=== PATIENT | female | born 1985 | race Caucasian/White ===

== ENCOUNTER 2016-11-12 11:33 | Emergency (ER) | payer OTHER ==
[2016-11-12 11:33] VITALS: BMI 19.1
[2016-11-12 11:41] VITALS: TEMP 98.8
[2016-11-12] MEDS ORDERED: Morphine 4 MG/ML VIAL ONE ×2 (13:04→14:21)
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
[2016-11-12 13:10] LABS: RBC URINE 97 /hpf (0-3); URINE BACTERIA OCC (<OCC); URINE BILIRUBIN NEGATIVE (NEGATIVE); URINE BLOOD 3+ (NEGATIVE); URINE COLOR Red (YELLOW); URINE GLUCOSE (UA) NORMAL (Normal); URINE KETONE NEGATIVE (NEGATIVE); URINE LEUKOCYTE ESTERASE TRACE Leu/uL (Negative); URINE PROTEIN 2+ mg/dL (NEGATIVE); URINE UROBILINOGEN NORMAL mg/dL (0.2-1.0); WBC URINE 102 /hpf (0-5)
[2016-11-12] MEDS ORDERED: Sodium Chloride 0.9% 1,000 ML IV ONE (13:30)
[2016-11-12 13:33] LABS: BASO # 0.1 K/uL (0.0-0.2); BASO % 0.4 % (0.0-2.0); EOS % 0.1 % (0.0-4.0); HEMATOCRIT 44.6 % (34.0-47.0); LYMPH # 0.9 K/uL (1.0-4.3); LYMPH % 7.4 % (20.0-40.0); MEAN CELL VOLUME 93.5 fL (81.0-99.0); MEAN CORPUSCULAR HEMOGLOBIN 31.1 pg (27.0-31.0); MEAN CORPUSCULAR HGB CONC 33.3 g/dL (33.0-37.0); MEAN PLATELET VOLUME 8.6 fL (7.2-11.7); MONO # 0.9 K/uL (0.0-0.8); MONO % 6.9 % (0.0-10.0); PLATELET COUNT 291 K/uL (130-400); RED CELL DISTRIBUTION WIDTH 13.5 % (11.5-14.5); WHITE BLOOD COUNT 12.8 K/uL (4.8-10.8)
[2016-11-12 13:41] LABS: CHLORIDE 96 mmol/L (98-107); SODIUM 136 mmol/L (132-148)
[2016-11-12 13:44] LABS: BLOOD UREA NITROGEN 18 mg/dL (7-17); CARBON DIOXIDE 24 mmol/L (22-30); GFR AFRICAN-AMERICAN > 60; GLUCOSE,RANDOM 94 mg/dL (65-105)
[2016-11-12 13:45] LABS: CALCIUM 9.4 mg/dl (8.6-10.4)
[2016-11-12 13:47] LABS: POTASSIUM 3.2 mmol/L (3.6-5.2)
[2016-11-12 14:08] LABS: BASOPHIL 1 % (0-2); NEUTROPHIL 79 % (50-75); REACTIVE LYMPHOCYTES 1 % (0-0); TOTAL CELLS COUNTED 100
[2016-11-12 14:36] VITALS: BP 157/94; PULSE 84; RESP 20
[2016-11-12] MEDS ORDERED: Oxycodone/Acetaminophen 5/325 mg Tab PO STA (16:00)
[2016-11-12 16:07] VITALS: O2SAT 99
[2016-11-12] MEDS ORDERED: cefTRIAXone (Rocephin) 250 mg Inj IM STA (16:24)
[2016-11-12] MEDS ORDERED: Oxycodone/Acetaminophen 5/325 mg Tab ONE (16:24)
== END 2016-11-12 17:05 | disposition home or self-care (01) ==
LOC: C.ER 11:33
DX: N93.8 Other specified abnormal uterine and vaginal bleeding (principal); R10.2 Pelvic and perineal pain
CPT/HCPCS: 80048; 81001; 84703; 85025; 87086; 87491; 87591; 96361; 96372; 96374; 96375; 96376; 99285; J0696; J2270; J2765; J7040

== ENCOUNTER 2018-02-14 14:55 | Emergency (ER) | payer SELFPAY ==
[2018-02-14 14:56] VITALS: BMI 19.1
[2018-02-14 15:05] VITALS: BP 128/92; TEMP 98.2
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
--- NOTE | 2018-02-14 17:36 | CT ---
Date of service: 02/14/2018 PROCEDURE: CT OF THE TEMPORAL BONES WITHOUT CONTRAST HISTORY: LEFT EAR PAIN, LEFT HEAR LOSS, TINNITIS COMPARISON: None available. TECHNIQUE: High resolution axial images of the temporal bones were obtained. Coronal and sagittal reformats were generated. Radiation dose: Total exam DLP = mGy-cm. This CT exam was performed using one or more of the following dose reduction techniques: Automated exposure control, adjustment of the mA and/or kV according to patient size, and/or use of iterative reconstruction technique. FINDINGS: RIGHT TEMPORAL BONE: RIGHT MIDDLE EAR: Normal. RIGHT INNER EAR: Cochlea: Normal. Semicircular canals: Normal. RIGHT MASTOID AIR CELLS: Normal. RIGHT INTERNAL AUDITORY CANAL: Minimal cerumen right external auditory canal. RIGHT EXTERNAL AUDITORY CANAL: Normal. RIGHT VESTIBULAR AND COCHLEAR AQUEDUCT: Normal. OTHER FINDINGS: None. LEFT TEMPORAL BONE: LEFT MIDDLE EAR: Normal. LEFT INNER EAR: Cochlea: Normal. Semicircular canals: Normal. LEFT MASTOID AIR CELLS: Normal. LEFT INTERNAL AUDITORY CANAL: There appears to be some minimal cerumen within. LEFT EXTERNAL AUDITORY CANAL: Normal. LEFT VESTIBULAR AND COCHLEAR AQUEDUCTS: Normal. OTHER FINDINGS: None. IMPRESSION: Minimal cerumen both external auditory canals however otherwise unremarkable non contrast enhanced CT of the temporal bones.
[2018-02-14 18:23] VITALS: PULSE 88; RESP 17
[2018-02-14 22:33] VITALS: O2SAT 99
== END 2018-02-14 18:22 | disposition home or self-care (01) ==
LOC: C.ER 14:55
DX: H93.12 Tinnitus, left ear (principal); H91.90 Unspecified hearing loss, unspecified ear; F17.200 Nicotine dependence, unspecified, uncomplicated

== ENCOUNTER 2018-03-07 07:18 | Emergency (ER) | payer SELFPAY ==
[2018-03-07 07:18] VITALS: BMI 19.1
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
[2018-03-07] MEDS ORDERED: Sodium Chloride 0.9% 1,000 ML IV ONE (08:01)
[2018-03-07] MEDS ORDERED: Sodium Chloride 0.9% 1,000 ML ONE (08:16)
[2018-03-07] MEDS ORDERED: Silver Sulfadiazine 1% Cream (20 gm) TOP STA (08:17)
[2018-03-07 08:28] LABS: BASO # 0.1 K/uL (0.0-0.2); BASO % 1.2 % (0.0-2.0); EOS # 0.1 K/uL (0.0-0.7); EOS % 0.7 % (0.0-4.0); HEMOGLOBIN 15.2 g/dL (11.0-16.0); LYMPH # 1.3 K/uL (1.0-4.3); MEAN CELL VOLUME 92.7 fL (81.0-99.0); MEAN CORPUSCULAR HEMOGLOBIN 31.5 pg (27.0-31.0); MEAN PLATELET VOLUME 7.8 fL (7.2-11.7); MONO # 0.7 K/uL (0.0-0.8); NEUT % 81.1 % (50.0-75.0); NRBC % 0.1 % (0.0-2.0); RBC 4.84 Mil/uL (3.80-5.20); WHITE BLOOD COUNT 12.3 K/uL (4.8-10.8)
[2018-03-07] MEDS ORDERED: Silver Sulfadiazine 1% Cream (20 gm) ONE (08:33)
[2018-03-07 08:39] LABS: ALB/GLOB RATIO 1.5 (1.0-2.1); ALBUMIN 4.9 g/dL (3.5-5.0); ALT/SGPT 18 U/L (9-52); AST/SGOT 22 U/L (14-36); BLOOD UREA NITROGEN 20 mg/dL (7-17); CALCIUM 9.7 mg/dl (8.6-10.4); GFR NON-AFRICAN AMERICAN > 60; LIPASE 402 U/L (23-300)
[2018-03-07 08:41] LABS: SQUAMOUS EPITHIAL 9 /hpf (0-5); URINE BACTERIA RARE (<OCC); URINE BILIRUBIN NEGATIVE (NEGATIVE); URINE BLOOD 3+ (NEGATIVE); URINE CLARITY Hazy (Clear); URINE COLOR Amber (YELLOW); URINE GLUCOSE (UA) NORMAL (Normal); URINE LEUKOCYTE ESTERASE TRACE Leu/uL (Negative); URINE PROTEIN 2+ mg/dL (NEGATIVE)
[2018-03-07 08:43] LABS: HCG,QUALITATIVE URINE NEGATIVE (NEGATIVE)
[2018-03-07 08:55] LABS: BARBITURATES, UR NEGATIVE (NEGATIVE); PHENCYCLIDINE, UR NEGATIVE (NEGATIVE)
[2018-03-07 09:00] LABS: AMYLASE 116 U/L (30-110)
[2018-03-07 09:42] LABS: OPIATES, UR NEGATIVE (NEGATIVE)
[2018-03-07 09:51] LABS: BENZODIAZEPINES, UR POSITIVE (NEGATIVE)
[2018-03-07 10:25] VITALS: TEMP 98.6
[2018-03-07] MEDS ORDERED: Aluminum Hydroxide/Magnesium Hydroxide Susp (30 mL) PO STA (10:34)
--- NOTE | 2018-03-07 10:55 | CT ---
Date of service: 03/07/2018 PROCEDURE: CT Abdomen and Pelvis without intravenous contrast HISTORY: epigastric pain, elevated lipase COMPARISON: CT dated 11/06/2015 TECHNIQUE: Multiple contiguous axial images were performed through the abdomen and pelvis without the use of intravenous contrast. Subsequently, sagittal and coronal reformatted images were obtained. Radiation dose: Total exam DLP = 206.72 mGy-cm. This CT exam was performed using one or more of the following dose reduction techniques: Automated exposure control, adjustment of the mA and/or kV according to patient size, and/or use of iterative reconstruction technique. FINDINGS: LOWER THORAX: Unremarkable. LIVER: Unremarkable. No gross lesion or ductal dilatation. GALLBLADDER AND BILE DUCTS: Unremarkable. PANCREAS: Grossly preserved pancreas. Evaluation somewhat limited without contrast. If there is persistent concern for pancreatitis, consider correlation with contrast-enhanced CT if clinically indicated. SPLEEN: Unremarkable. ADRENALS: Unremarkable. No mass. KIDNEYS AND URETERS: 5 millimeter nonobstructive calculus in the upper pole of the right kidney. Additional 2 millimeter nonobstructive calculus in the lower pole of the right kidney. 4 millimeter nonobstructive calculi in the upper pole of the left kidney with an adjacent punctate 2 millimeter calculus in the upper pole of the left kidney. 2 millimeter punctate nonobstructive calculus in midpole of the left kidney. 4 millimeter nonobstructive calculus in the lower pole of the left kidney. VASCULATURE: Unremarkable. No aortic aneurysm. BOWEL: Unremarkable. No obstruction. No gross mural thickening. APPENDIX: No findings to suggest acute appendicitis. PERITONEUM: Unremarkable. No free fluid. No free air. LYMPH NODES: Few shotty para-aortic and mesenteric lymph nodes. BLADDER: Unremarkable. REPRODUCTIVE: Unremarkable. BONES: No acute fracture. OTHER FINDINGS: None. IMPRESSION: Nonobstructive bilateral renal calculi. Grossly preserved pancreas. Evaluation somewhat limited without contrast. If there is persistent concern for pancreatitis, consider correlation with contrast-enhanced CT if clinically indicated. Additional findings as above.
[2018-03-07] MEDS ORDERED: Sodium Chloride 0.9% 1,000 ML IV SCH (11:15)
[2018-03-07 11:32] VITALS: BP 160/95; PULSE 91
[2018-03-07 12:53] VITALS: RESP 16
[2018-03-07 12:55] VITALS: O2SAT 98
== END 2018-03-07 12:51 | disposition home or self-care (01) ==
LOC: C.ER 07:18
DX: T21.22XD Burn of second degree of abdominal wall, subsequent encounter (principal); X11.8XXD Contact with other hot tap-water, subsequent encounter; F41.9 Anxiety disorder, unspecified; R10.9 Unspecified abdominal pain
CPT/HCPCS: 74176; 80053; 80324; 80345; 80346; 80349; 80353; 80358; 80361; 81001; 82150; 83690; 83992; 84703; 85025; 96361; 96374; 96375; 99285; J2270; J7030

== ENCOUNTER 2018-04-01 18:18 | Emergency (ER) | payer SELFPAY ==
[2018-04-01 18:19] VITALS: BMI 19.1
[2018-04-01 18:29] VITALS: BP 112/75; TEMP 98.6
[2018-04-01 18:51] VITALS: PULSE 72; RESP 20; O2SAT 99
[2018-04-01] MEDS ORDERED: Albuterol 0.083% Inhal Sol (2.5 mg/3 mL) UD INH STA (19:36)
[2018-04-01] MEDS ORDERED: Albuterol-Ipratrop 3 mg / 0.5 (3 ml) UD IH STA (19:36)
[2018-04-01] MEDS ORDERED: Albuterol 0.083% Inhal Sol (2.5 mg/3 mL) UD ONE (19:43)
[2018-04-01] MEDS ORDERED: Albuterol-Ipratrop 3 mg / 0.5 (3 ml) UD ONE (19:43)
--- NOTE | 2018-04-01 21:12 | C.PDOC ---
History Of Present Illness 33 year old female, whose PMHx includes Asthma, presents to the ED for evaluation of intermittent wheezing for the past 2 weeks. Patient has been feeling like her asthma is not under control. She admits to smoking. Patient denies fever, chills, chest pain. Time Seen by Provider: 04/01/18 18:49 Chief Complaint (Nursing): Cough, Cold, Congestion History Per: Patient History/Exam Limitations: no limitations Onset/Duration Of Symptoms: Intermittent Episodes, Other (2 weeks ) Current Symptoms Are (Timing): Still Present Additional History Per: Patient Past Medical History Reviewed: Historical Data, Nursing Documentation, Vital Signs Vital Signs: Last Vital Signs Temp 98.6 F 04/01/18 18:26 Pulse 72 04/01/18 18:50 Resp 20 04/01/18 18:50 BP 112/75 04/01/18 18:26 Pulse Ox 99 04/01/18 18:50 - Medical History PMH: Anxiety, Asthma, Bipolar Disorder, Depression, Kidney Stones, Chronic Kidney Disease (SEE COMMENT) Surgical History: No Surg Hx - [facility] Procedures CYSTOSCOPY NEC (01/19/14) RETROGRADE PYELOGRAM (01/19/14) TU REMOV URETER OBSTRUCT (02/08/14) URETERAL CATHETERIZATION (02/08/14) Family History: States: Unknown Family Hx - Social History Hx Tobacco Use: Yes (heavy smoker) Hx Alcohol Use: No Hx Substance Use: No (Denied) - Immunization History Hx Tetanus Toxoid Vaccination: Yes Hx Influenza Vaccination: Yes Hx Pneumococcal Vaccination: No Review Of Systems Constitutional: Negative for: Fever, Chills Respiratory: Positive for: Wheezing Physical Exam - Physical Exam Appears: Non-toxic, No Acute Distress Skin: Normal Color, Warm, Dry Head: Atraumatic, Normacephalic Eye(s): bilateral: Normal Inspection Oral Mucosa: Moist Neck: Supple Chest: Symmetrical, No Deformity, No Tenderness Cardiovascular: Rhythm Regular, No Murmur Respiratory: No Rales, No Rhonchi, Wheezing Extremity: Normal ROM, Capillary Refill (less than 2 seconds ) Neurological/Psych: Oriented x3, Normal Speech, Normal Cognition ED Course And Treatment O2 Sat by Pulse Oximetry: 99 (on RA ) Pulse Ox Interpretation: Normal - Radiology CXR: Interpreted by Me CXR Interpretation: Yes: No Acute Disease Progress Note: CXR ordered and reviewed, results are negative. Albuterol INH and Prednisone PO given. On reassessment, patient is resting comfortably, showing no signs of respiratory distress and reports an improvement in her symptoms. Patient is stable for discharge and is advised to f/u with PMD within 1-2 days for further evaluation. Advised to return if sx worsen. Disposition - Disposition Referrals: [facility] at [facility] [Outside] Disposition: HOME/ ROUTINE Disposition Time: 21:10 Condition: GOOD Additional Instructions: Follow up with your PMD/clinic within 1-2 days. Return to ED if feel worse. Prescriptions: Fluticasone/Salmeterol 100/50 [Advair Diskus 100/50] 1 puff PO BID #60 puff Albuterol 0.083% [Albuterol Sulfate 3 Ml] 3 ml IH .Q4-6H #100 vial Albuterol 0.083% [Albuterol Sulfate 3 Ml] 3 ml IH .Q4-6H #100 vial predniSONE [predniSONE Tab] 2 tab PO DAILY #8 tab Albuterol HFA [Ventolin HFA 90 mcg/actuation (8 g)] 1 puff IH .Q4-6H #1 inhaler Instructions: Asthma in Adults Forms: [facility] (Trinidadian) Print Language: GEORGIAN - Clinical Impression Clinical Impression: Asthma exacerbation - PA / OYSTER HARVESTER / Resident Statement MD/DO has reviewed & agrees with the documentation as recorded. - Scribe Statement The provider has reviewed the documentation as recorded by the Scribe (Gabriella Rubio) All medical record entries made by the Scribe were at my direction and personally dictated by me. I have reviewed the chart and agree that the record accurately reflects my personal performance of the history, physical exam, medical decision making, and the department course for this patient. I have also personally directed, reviewed, and agree with the discharge instructions and disposition.
--- NOTE | 2018-04-02 08:45 | RAD ---
Date of service: 04/01/2018 HISTORY: cough/wheezing COMPARISON: No prior. TECHNIQUE: Chest PA and lateral FINDINGS: LUNGS: Mild venous congestion. Bibasilar breast and nipple shadows. PLEURA: No significant pleural effusion identified. No pneumothorax apparent. CARDIOVASCULAR: No aortic atherosclerotic calcification present. Normal cardiac size. OSSEOUS STRUCTURES: No significant abnormalities. VISUALIZED UPPER ABDOMEN: Normal. OTHER FINDINGS: None. IMPRESSION: Mild venous congestion. Bibasilar breast and nipple shadows.
== END 2018-04-01 21:20 | disposition home or self-care (01) ==
LOC: C.ER 18:18
DX: J45.901 Unspecified asthma with (acute) exacerbation (principal); F17.210 Nicotine dependence, cigarettes, uncomplicated

== ENCOUNTER 2018-04-11 13:54 | Emergency (ER) | payer SELFPAY ==
[2018-04-11 13:55] VITALS: BMI 19.1
[2018-04-11 14:21] VITALS: RESP 18
[2018-04-11] MEDS ORDERED: Sodium Chloride 0.9% 1,000 ML IV ONE (15:55)
--- NOTE | 2018-04-11 16:21 | C.PDOC ---
History Of Present Illness 33 years old female with PMHx of asthma presents to ED for complaints of epigastric and diffuse abdominal pain associated with nausea and vomiting that began 3 days ago. Patient states last episode of vomiting was TAP GRINDER. LNMP was 1 we ek ago. Patient states she did not take any pain medications. Admits to marijuana use (Last use 1 month ago) but denies any other drug use. Patient also admits to smoking half a pack of cigarettes a day. Denies alcohol use, fever, diarrhea, or any other complaints. Allergies: * Iodine. Time Seen by Provider: 04/11/18 15:16 Chief Complaint (Nursing): Abdominal Pain History Per: Patient History/Exam Limitations: no limitations Onset/Duration Of Symptoms: Days (3) Current Symptoms Are (Timing): Still Present Severity: Severe Pain Scale Rating Of: 10 Location Of Pain/Discomfort: Diffuse, Epigastric Radiation Of Pain To:: None Quality Of Discomfort: "Pain" Associated Symptoms: Nausea, Vomiting. denies: Fever, Chills, Diarrhea Exacerbating Factors: Movement Alleviating Factors: None Last Bowel Movement: Today Recent travel outside of the [place]: No Abnormal Vaginal Bleeding: No Past Medical History Reviewed: Historical Data, Nursing Documentation, Vital Signs Vital Signs: Last Vital Signs Temp 98.3 F 04/11/18 14:18 Pulse 106 H 04/11/18 14:18 Resp 18 04/11/18 14:18 BP 172/107 H 04/11/18 14:18 Pulse Ox 97 04/11/18 14:18 - Medical History PMH: Anxiety, Asthma, Bipolar Disorder, Depression, Kidney Stones, Chronic Kidney Disease (SEE COMMENT) - [facility] Procedures CYSTOSCOPY NEC (01/19/14) RETROGRADE PYELOGRAM (01/19/14) TU REMOV URETER OBSTRUCT (02/08/14) URETERAL CATHETERIZATION (02/08/14) Family History: States: Unknown Family Hx - Social History Hx Tobacco Use: Yes (heavy smoker) Hx Alcohol Use: No Hx Substance Use: No (Denied) - Immunization History Hx Tetanus Toxoid Vaccination: No Hx Influenza Vaccination: No Hx Pneumococcal Vaccination: No Review Of Systems Constitutional: Negative for: Fever, Chills Gastrointestinal: Positive for: Nausea, Vomiting, Abdominal Pain (Epigastric and diffusely ). Negative for: Diarrhea Skin: Negative for: Rash Neurological: Negative for: Weakness, Numbness Physical Exam - Physical Exam Appears: Non-toxic, No Acute Distress, Other (Cachectic. Emaciated. Muscle wasting to face. Writhing on bed in pain. ) Skin: Normal Color, Warm, Dry, No Rash Head: Atraumatic, Normacephalic Eye(s): bilateral: Normal Inspection, PERRL, EOMI Oral Mucosa: Moist Neck: Normal ROM, Supple Chest: Symmetrical, No Tenderness Cardiovascular: Rhythm Regular, No Murmur Respiratory: Normal Breath Sounds, No Rales, No Rhonchi, No Wheezing Gastrointestinal/Abdominal: Soft, Tenderness (Diffuse ) Extremity: Normal ROM Extremity: Bilateral: Atraumatic, Normal Color And Temperature, Normal ROM Pulses: Left Radial: Normal, Right Radial: Normal Neurological/Psych: Oriented x3, Normal Speech ED Course And Treatment - Laboratory Results Result Diagrams: 04/11/18 17:24 04/11/18 17:24 O2 Sat by Pulse Oximetry: 97 (RA) Pulse Ox Interpretation: Normal Medical Decision Making Medical Decision Making: Plan: * IV Fluids * Morphine * Pepcid * Blood work * Urinalysis Patient is a chronic marijuana user and 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 Patient feeling better, will d/c Disposition Counseled Patient/Family Regarding: Diagnosis, Need For Followup, Rx Given - Disposition Disposition: HOME/ ROUTINE Disposition Time: 18:15 Condition: IMPROVED Instructions: Nausea and Vomiting, Adult (DC) Forms: [facility] (Pashto), General Discharge Instructions - POA Present On Arrival: None - Clinical Impression Clinical Impression: Nausea & vomiting - Scribe Statement The provider has reviewed the documentation as recorded by the Saranya Hernández All medical record entries made by the Brooklynibissa were at my direction and personally dictated by me. I have reviewed the chart and agree that the record accurately reflects my personal performance of the history, physical exam, medical decision making, and the department course for this patient. I have also personally directed, reviewed, and agree with the discharge instructions and disposition.
[2018-04-11] MEDS ORDERED: Sodium Chloride 0.9% 1,000 ML ONE (17:01)
[2018-04-11 17:21] LABS: HCG,QUALITATIVE URINE NEGATIVE (NEGATIVE)
[2018-04-11 17:23] LABS: SQUAMOUS EPITHIAL 3 /hpf (0-5); URINE BACTERIA RARE (<OCC); URINE BILIRUBIN NEGATIVE (NEGATIVE); URINE BLOOD 1+ (NEGATIVE); URINE CLARITY Clear (Clear); URINE COLOR Yellow (YELLOW); URINE GLUCOSE (UA) NORMAL (Normal); URINE LEUKOCYTE ESTERASE NEG Leu/uL (Negative); URINE PROTEIN NEGATIVE (NEGATIVE); URINE UROBILINOGEN NORMAL mg/dL (0.2-1.0)
[2018-04-11 17:30] LABS: BARBITURATES, UR NEGATIVE (NEGATIVE); OPIATES, UR NEGATIVE (NEGATIVE); PHENCYCLIDINE, UR NEGATIVE (NEGATIVE)
[2018-04-11 17:32] LABS: BASO # 0.1 K/uL (0.0-0.2); BASO % 0.5 % (0.0-2.0); EOS # 0.1 K/uL (0.0-0.7); EOS % 0.4 % (0.0-4.0); HEMOGLOBIN 14.4 g/dL (11.0-16.0); LYMPH # 0.8 K/uL (1.0-4.3); LYMPH % 5.8 % (20.0-40.0); MEAN CELL VOLUME 93.6 fL (81.0-99.0); MEAN CORPUSCULAR HEMOGLOBIN 31.4 pg (27.0-31.0); MEAN CORPUSCULAR HGB CONC 33.5 g/dL (33.0-37.0); MEAN PLATELET VOLUME 7.3 fL (7.2-11.7); MONO # 0.4 K/uL (0.0-0.8); MONO % 2.8 % (0.0-10.0); NEUT % 90.5 % (50.0-75.0); PLATELET COUNT 356 K/uL (130-400); RBC 4.59 Mil/uL (3.80-5.20); RED CELL DISTRIBUTION WIDTH 13.6 % (11.5-14.5); WHITE BLOOD COUNT 14.4 K/uL (4.8-10.8)
[2018-04-11 17:33] LABS: BENZODIAZEPINES, UR POSITIVE (NEGATIVE)
[2018-04-11 17:42] LABS: ALB/GLOB RATIO 1.8 (1.0-2.1); ALBUMIN 4.7 g/dL (3.5-5.0); ALT/SGPT 16 U/L (9-52); AST/SGOT 17 U/L (14-36); BLOOD UREA NITROGEN 12 mg/dL (7-17); GFR NON-AFRICAN AMERICAN > 60
[2018-04-11 18:32] LABS: LARGE PLATELETS PRESENT; LYMPHOCYTE 6 % (20-40); MONOCYTE 1 % (0-10); NEUTROPHIL 93 % (50-75); PLATELET ESTIMATE SLIGHTLY INCREASED (NORMAL); TOTAL CELLS COUNTED 100
[2018-04-11 18:45] VITALS: BP 146/84; PULSE 86; TEMP 98.2; O2SAT 98
== END 2018-04-11 18:41 | disposition home or self-care (01) ==
LOC: C.ER 13:54
DX: R11.2 Nausea with vomiting, unspecified (principal)
CPT/HCPCS: 80053; 80320; 80324; 80345; 80346; 80349; 80353; 80358; 80361; 81001; 83992; 84703; 85025; 96361; 96374; 96375; 99284; J2270; J7030

== ENCOUNTER 2018-08-18 19:48 | Inpatient (IN) | payer MEDICAID, OTHER ==
[2018-08-18 19:48] VITALS: BMI 28.2
[2018-08-18] MEDS ORDERED: Sodium Chloride 0.9% 1,000 ML IV ONE ×2 (20:27→22:34)
--- NOTE | 2018-08-18 20:27 | C.PDOC ---
History Of Present Illness 33 year old female presents to the ED c/o abdominal pain associated with nausea, vomit and decrease PO intake for the past week. Patient denies fever, chills, diarrhea, CP, SOB, palpitations, rash, recent travel, sick contacts. Time Seen by Provider: 08/18/18 20:26 Chief Complaint (Nursing): Abdominal Pain History Per: Patient History/Exam Limitations: no limitations Onset/Duration Of Symptoms: Days (week) Current Symptoms Are (Timing): Still Present Context: Other Severity: Moderate Pain Scale Rating Of: 5 Location Of Pain/Discomfort: Epigastric Radiation Of Pain To:: Back Quality Of Discomfort: Dull, Cramping Associated Symptoms: Nausea, Vomiting, Urinary Symptoms. denies: Diarrhea Exacerbating Factors: None Alleviating Factors: None Last Bowel Movement: Today Additional History Per: Patient Abnormal Vaginal Bleeding: No Past Medical History Reviewed: Historical Data, Nursing Documentation, Vital Signs - Medical History PMH: Anxiety, Asthma, Bipolar Disorder, Depression, Kidney Stones, Chronic Kidney Disease (SEE COMMENT) Surgical History: No Surg Hx - [facility] Procedures CYSTOSCOPY NEC (01/19/14) RETROGRADE PYELOGRAM (01/19/14) TU REMOV URETER OBSTRUCT (02/08/14) URETERAL CATHETERIZATION (02/08/14) Family History: States: Unknown Family Hx - Social History Hx Tobacco Use: Yes (heavy smoker) Hx Alcohol Use: No Hx Substance Use: No (Denied) - Immunization History Hx Tetanus Toxoid Vaccination: No Hx Influenza Vaccination: No Hx Pneumococcal Vaccination: No Review Of Systems Constitutional: Negative for: Fever, Chills Cardiovascular: Negative for: Chest Pain Respiratory: Negative for: Shortness of Breath Gastrointestinal: Positive for: Nausea, Vomiting, Abdominal Pain. Negative for: Diarrhea, Constipation Genitourinary: Negative for: Dysuria Musculoskeletal: Negative for: Back Pain Skin: Negative for: Rash Neurological: Negative for: Weakness, Numbness, Headache Psych: Positive for: Anxiety Physical Exam - Physical Exam Appears: Non-toxic, Other (cachectic looking) Skin: Warm, Dry Head: Normacephalic Eye(s): bilateral: Normal Inspection Oral Mucosa: Dry Neck: Supple Chest: Symmetrical Cardiovascular: Rhythm Regular Respiratory: No Rales, No Rhonchi, No Wheezing Gastrointestinal/Abdominal: Soft, Tenderness (diffuse), No Distention, No Guarding, No Rebound Back: No CVA Tenderness Extremity: No Tenderness Extremity: Bilateral: Atraumatic, Normal Color And Temperature, Normal ROM Pulses: Left Dorsalis Pedis: Normal, Right Dorsalis Pedis: Normal Neurological/Psych: Oriented x3, Normal Speech, Normal Cognition Gait: Steady ED Course And Treatment - Laboratory Results Result Diagrams: 08/18/18 20:47 08/18/18 20:47 O2 Sat by Pulse Oximetry: 100 (ON RA) Pulse Ox Interpretation: Normal Progress Note: Plan: - Labs. - Pepcid 20 mg IVP. - Reglan 10 mg IVP. - IV fluids. - UA Disposition Discussed With : Orestes Celis Comment: accepted the pt on his service and took over the care at 10:37PM Doctor Will See Patient In The: ED Counseled Patient/Family Regarding: Studies Performed, Diagnosis - Disposition Disposition: HOSPITALIZED Disposition Time: 20:27 Condition: FAIR Forms: [facility] (Turkish) - POA Present On Arrival: None - Clinical Impression Clinical Impression: Pancreatitis, Abdominal pain, Severe dehydration, Renal insufficiency, UTI ( urinary tract infection) - Scribe Statement The provider has reviewed the documentation as recorded by the Scribe Kristofer Hagen All medical record entries made by the Scribe were at my direction and personally dictated by me. I have reviewed the chart and agree that the record accurately reflects my personal performance of the history, physical exam, medical decision making, and the department course for this patient. I have also personally directed, reviewed, and agree with the discharge instructions and disposition. Decision To Admit - Pt Status Changed To: Hospital Disposition Of: Inpatient - Admit Certification Admit to Inpatient:: After my assessment, the patient will require hospitalization for at least two midnights. This is because of the severity of symptoms shown, intensity of services needed, and/or the medical risk in this patient being treated as an outpatient. - InPatient: Physician Admission Certification:: After my assessment, the patient will require hospitalization for at least two midnights. This is because of the severity of symptoms shown, intensity of services needed, and/or the medical risk in this patient being treated as an outpatient. - . Bed Request Type: Regular Admitting Physician: Orestes Celis Patient Diagnosis: Pancreatitis, Abdominal pain, Severe dehydration, Renal insufficiency, UTI (urinary tract infection)
[2018-08-18 20:53] LABS: BASO # 0.1 K/uL (0.0-0.2); BASO % 0.6 % (0.0-2.0); EOS # 0.1 K/uL (0.0-0.7); EOS % 0.9 % (0.0-4.0); LYMPH # 1.2 K/uL (1.0-4.3); LYMPH % 9.3 % (20.0-40.0); MEAN CELL VOLUME 89.4 fL (81.0-99.0); MEAN CORPUSCULAR HEMOGLOBIN 31.5 pg (27.0-31.0); MEAN CORPUSCULAR HGB CONC 35.2 g/dL (33.0-37.0); MEAN PLATELET VOLUME 8.2 fL (7.2-11.7); MONO # 1.4 K/uL (0.0-0.8); NEUT # 10.3 K/uL (1.8-7.0); NEUT % 78.2 % (50.0-75.0); NRBC % 0.1 % (0.0-2.0); PLATELET COUNT 375 K/uL (130-400); RBC 6.04 Mil/uL (3.80-5.20); RED CELL DISTRIBUTION WIDTH 13.2 % (11.5-14.5); WHITE BLOOD COUNT 13.2 K/uL (4.8-10.8)
[2018-08-18 21:01] LABS: HCG,QUALITATIVE URINE NEGATIVE (NEGATIVE)
[2018-08-18 21:06] LABS: SQUAMOUS EPITHIAL 11 /hpf (0-5); URINE BACTERIA FEW (<OCC); URINE BILIRUBIN NEGATIVE (NEGATIVE); URINE BLOOD 2+ (NEGATIVE); URINE CLARITY Hazy (Clear); URINE COLOR Yellow (YELLOW); URINE GLUCOSE (UA) NORMAL (Normal); URINE LEUKOCYTE ESTERASE 2+ Leu/uL (Negative); URINE PROTEIN 1+ mg/dL (NEGATIVE); URINE UROBILINOGEN NORMAL mg/dL (0.2-1.0); WBC CLUMPS OCC /hpf
[2018-08-18 21:09] LABS: ALB/GLOB RATIO 1.4 (1.0-2.1); ALBUMIN 5.8 g/dL (3.5-5.0); BLOOD UREA NITROGEN 98 mg/dL (7-17); LIPASE 1476 U/L (23-300)
[2018-08-18 21:11] LABS: ALT/SGPT < 6 U/L (9-52); AST/SGOT 28 U/L (14-36)
[2018-08-18 21:20] LABS: GFR NON-AFRICAN AMERICAN 10
[2018-08-18 22:20] LABS: LYMPHOCYTE 12 % (20-40); MONOCYTE 6 % (0-10); NEUTROPHIL 82 % (50-75); PLATELET ESTIMATE NORMAL (NORMAL); TOTAL CELLS COUNTED 100
[2018-08-18 22:21] LABS: LARGE PLATELETS PRESENT; MICROCYTOSIS SLIGHT
[2018-08-18] MEDS ORDERED: Piperacillin/Tazobact 3.375 gm 100 ML IVPB STA (22:36)
[2018-08-18] MEDS ORDERED: Piperacillin/Tazobact 3.375 gm 100 ML IVPB ONE (22:44)
--- NOTE | 2018-08-19 00:16 | CP.PCM.HP ---
<Elena Mejia P - Last Filed: 08/19/18 06:50> History of Present Illness - History of Present Illness History of Present Illness: Medicine H&P CC: N/V/D/abdominal pain HPI: 33 year old female with PMHx of depression, anxiety and asthma presents with 1 week of vomiting, diarrhea and abominal pain. Patient states this happens when she becomes severely depressed and anxious, but has never lasted this long. Patient reports many episodes of vomiting per day, too many to count, non bloody non bilious. She has not been able to tolerate liquids or solids. She reports 2-3 episodes of diarrhea per day, but resolved 4 days ago. She also reports epigastric abdominal pain, it is severe and pulsating/cramping. Pain radiates to RUQ. Pain worsens with gagging/vomiting. Associated symptoms include chills, bodyaches and headache. Denies fever, dizziness, chest pain, cough, shortness of breath. PMHx: depression, anxiety and asthma PSHx: Kidney stent Meds: See MAR Allergies: Iodine, Shellfish- anaphylaxis; zofran, [place], peach, apple, kiwi- itching Family Hx: mother-HTN, asthma, depressoin SocHx: smoker- smokes 10cig per day for 20 years. Denies alcohol and illicit drugs PMD: Dr. Barboza Proxy: Arnold cyr [phone] Review of Systems: -Gen: No fever, + chills, +bodyaches, No headache, No lethargy, No weakness. -HEENT: No dizziness, No change in vision, No change in hearing, No sore throat, No dysphagia, No nasal congestion, No mucous. -Cardio: No chest pain, No palpitations, No lower extremity edema, No orthopnea. -Resp: No cough, No dyspnea, No hemoptysis, No wheezing, No pain on inspiration. -GI: + abdominal pain, + nausea/vomiting, + diarrhea, No hematochezia, No hematemesis. -: No dysuria, No urinary freq, No incontinence, No hematuria, No change in urinary stream. -MSK: No back pain, No muscle weakness, No radiating pain. -Skin: No itching, No rash, No lesions. -Neuro: No confusion, No numbness, No tingling, No focal weakness, No radicular pain, No syncope. -Psych: + anxiety, +depression, No H/I, No S/I, No hallucinations. Present on Admission - Present on Admission Any Indicators Present on Admission: No Past Patient History - Infectious Disease Hx of Infectious Diseases: None - Tetanus Immunizations Tetanus Immunization: Unknown - Past Medical History & Family History Past Medical History?: Yes - Past Social History Smoking Status: Heavy Smoker > 10 Cigarettes Daily - CARDIAC Hx Cardiac Disorders: No - PULMONARY Hx Asthma: Yes - NEUROLOGICAL Hx Neurological Disorder: No - HEENT Hx HEENT Problems: No - RENAL Hx Chronic Kidney Disease: Yes (SEE COMMENT) Hx Kidney Stones: Yes - ENDOCRINE/METABOLIC Hx Endocrine Disorders: No - HEMATOLOGICAL/ONCOLOGICAL Hx Blood Disorders: No - INTEGUMENTARY Hx Dermatological Problems: No - MUSCULOSKELETAL/RHEUMATOLOGICAL Hx Falls: No - GASTROINTESTINAL Hx Gastrointestinal Disorders: No - GENITOURINARY/GYNECOLOGICAL Hx Genitourinary Disorders: Yes (SEE COMMENT) Other/Comment: kidney stones - PSYCHIATRIC Hx Anxiety: Yes Hx Bipolar Disorder: Yes Hx Depression: Yes Hx Substance Use: No (Denied) - SURGICAL HISTORY Hx Surgeries: Yes (SEE COMMENT) Other/Comment: cysto/stent placement;Lithotripsy - ANESTHESIA Hx Anesthesia: Yes Hx Anesthesia Reactions: No Hx Malignant Hyperthermia: No Meds Allergies/Adverse Reactions: Allergies Allergy/AdvReac Type Severity Reaction Status Date / Time iodine Allergy Severe ANAPHYLAXIS Verified 08/18/18 20:22 ketorolac tromethamine Allergy Severe ANAPHYLAXIS Verified 08/18/18 20:22 [From Toradol] ondansetron HCl Allergy Severe ANAPHYLAXIS Verified 08/18/18 20:22 [From Zofran (as hydrochloride)] shellfish derived Allergy Severe ANAPHYLAXIS Verified 08/18/18 20:22 Physical Exam - Constitutional Appears: No Acute Distress - Head Exam Head Exam: ATRAUMATIC, NORMOCEPHALIC - Eye Exam Eye Exam: EOMI, Normal appearance, PERRL - ENT Exam ENT Exam: Mucous Membranes Moist - Neck Exam Neck exam: Positive for: Full Rom, Normal Inspection - Respiratory Exam Respiratory Exam: Wheezes (scattered), NORMAL BREATHING PATTERN. absent: Rales, Rhonchi, Respiratory Distress - Cardiovascular Exam Cardiovascular Exam: REGULAR RHYTHM, +S1, +S2 - GI/Abdominal Exam GI & Abdominal Exam: Guarding (LUQ), Normal Bowel Sounds, Soft, Tenderness (Epigastrium, LUQ and LLQ). absent: Distended, Firm, Rigid Additional comments: 1st degress singer over abdomen (reportedly from heating pad) - Extremities Exam Extremities exam: Positive for: full ROM, normal capillary refill, normal inspection, pedal pulses present. Negative for: calf tenderness, pedal edema, tenderness - Neurological Exam Neurological exam: Alert, CN II-XII Intact, Normal Gait, Oriented x3 - Psychiatric Exam Psychiatric exam: Anxious, Depressed Additional comments: tearful - Skin Skin Exam: Dry, Intact, Normal Color, Warm Additional comments: decreased turgor, 1st degree singer to abdomen Results - Vital Signs Recent Vital Signs: Last Vital Signs Temp 97.4 F L 08/18/18 23:55 Pulse 78 08/18/18 23:55 Resp 18 08/18/18 23:55 BP 132/82 08/18/18 23:55 Pulse Ox 99 08/18/18 23:55 - Labs Result Diagrams: 08/18/18 20:47 08/18/18 20:47 Labs: Laboratory Results - last 24 hr 08/18/18 08/18/18 08/18/18 20:47 20:47 20:47 WBC 13.2 H RBC 6.04 H Hgb 19.0 H D Hct 54.0 H MCV 89.4 D MCH 31.5 H MCHC 35.2 RDW 13.2 Plt Count 375 MPV 8.2 Neut % (Auto) 78.2 H Lymph % (Auto) 9.3 L Davison % (Auto) 11.0 H Eos % (Auto) 0.9 Baso % (Auto) 0.6 Neut # (Auto) 10.3 H Lymph # (Auto) 1.2 Davison # (Auto) 1.4 H Eos # (Auto) 0.1 Baso # (Auto) 0.1 Neutrophils % (Manual) 82 H Lymphocytes % (Manual) 12 L Monocytes % (Manual) 6 Platelet Estimate Normal Large Platelets Present Microcytosis (manual) Slight Sodium 126 L Potassium 3.8 Chloride 76 L D Carbon Dioxide 25 Anion Gap 28 H BUN 98 H Creatinine 5.1 H Est GFR ( Amer) 12 Est GFR (Non-Af Amer) 10 Random Glucose 97 Calcium 10.0 Total Bilirubin 1.3 AST 28 ALT < 6 L D Alkaline Phosphatase 78 Total Protein 10.1 H Albumin 5.8 H D Globulin 4.3 H Albumin/Globulin Ratio 1.4 Lipase 1476 H Urine Color Yellow Urine Clarity Hazy Urine pH 5.0 Ur Specific [place] 1.014 Urine Protein 1+ H Urine Glucose (UA) Normal Urine Ketones Negative Urine Blood 2+ H Urine Nitrate Negative Urine Bilirubin Negative Urine Urobilinogen Normal Ur Leukocyte Esterase 2+ H Urine WBC (Auto) 55 H Urine RBC (Auto) 9 H Urine WBC Clumps (Auto) Occ H Ur Squamous Epith Cells 11 H Ur Transition Epith Cell 2 Urine Bacteria Few H Hyaline Casts 11-20 H Urine HCG, Qual Negative Assessment & Plan - Assessment and Plan (Free Text) Plan: Dehydration N/V/D Mild Pancreatitis Lipase: 1476 CT abd: Mild pancreatitis at the distal tail. F/u official read D5w/NS @150 mls/hr Folic acid 1mg PO daily Thiamine 100mg PO daily Percocet 1tab Q4H PRN Severe pain Tylenol 650 Q6H PRN moderate pain Promethazine 12.5mg Q6 PRN Nausea Multivitamins NPO Depression/Anxiety Xanax 0.5mg PO daily Paxil 20mg PO daily Trazodone 200mg HS Asthma Venolin inh 2pffs Q6H PRN SOB/wheezing PPx Heparin 5000u SC q12 Pepcid 20mg PO daily Case discussed with Dr. Vimal Mejia, PGY1 <Orestes Celis P - Last Filed: 08/19/18 08:22> Results - Vital Signs Recent Vital Signs: Last Vital Signs Temp 98.6 F 08/19/18 07:00 Pulse 82 08/19/18 07:00 Resp 20 08/19/18 07:00 BP 133/89 08/19/18 07:00 Pulse Ox 94 L 08/19/18 07:00 - Labs Result Diagrams: 08/18/18 20:47 08/18/18 20:47 Labs: Laboratory Results - last 24 hr 08/18/18 08/18/18 08/18/18 20:47 20:47 20:47 WBC 13.2 H RBC 6.04 H Hgb 19.0 H D Hct 54.0 H MCV 89.4 D MCH 31.5 H MCHC 35.2 RDW 13.2 Plt Count 375 MPV 8.2 Neut % (Auto) 78.2 H Lymph % (Auto) 9.3 L Dav[place] % (Auto) 11.0 H Eos % (Auto) 0.9 Baso % (Auto) 0.6 Neut # (Auto) 10.3 H Lymph # (Auto) 1.2 [place] # (Auto) 1.4 H Eos # (Auto) 0.1 Baso # (Auto) 0.1 Neutrophils % (Manual) 82 H Lymphocytes % (Manual) 12 L Monocytes % (Manual) 6 Platelet Estimate Normal Large Platelets Present Microcytosis (manual) Slight Sodium 126 L Potassium 3.8 Chloride 76 L D Carbon Dioxide 25 Anion Gap 28 H BUN 98 H Creatinine 5.1 H Est GFR ( Amer) 12 Est GFR (Non-Af Amer) 10 Random Glucose 97 Calcium 10.0 Total Bilirubin 1.3 AST 28 ALT < 6 L D Alkaline Phosphatase 78 Total Protein 10.1 H Albumin 5.8 H D Globulin 4.3 H Albumin/Globulin Ratio 1.4 Lipase 1476 H Urine Color Yellow Urine Clarity Hazy Urine pH 5.0 Ur Specific [place] 1.014 Urine Protein 1+ H Urine Glucose (UA) Normal Urine Ketones Negative Urine Blood 2+ H Urine Nitrate Negative Urine Bilirubin Negative Urine Urobilinogen Normal Ur Leukocyte Esterase 2+ H Urine WBC (Auto) 55 H Urine RBC (Auto) 9 H Urine WBC Clumps (Auto) Occ H Ur Squamous Epith Cells 11 H Ur Transition Epith Cell 2 Urine Bacteria Few H Hyaline Casts 11-20 H Urine HCG, Qual Negative Attending/Attestation - Attestation I have personally seen and examined this patient.: Yes I have fully participated in the care of the patient.: Yes I have reviewed all pertinent clinical information: Yes Notes (Text): 08/19/18 08:16 Abd cramps, poor intake, severe dehydration, secondary ERIN, Elevated lipase ? primary pancreatitis vs form ERIN poor excretion H/o anxiety H/o canabinoid dependence h/o poor intake for 1wk, last bm about 1wk back, abd cramps for 3 days, once in 2-3 hrs, abd skin superficial grid patten of heating form heating pad. Plan IVF MVT, thiamine, ppi anxiety meds GI consult, possible endoscopy Gi/dvt prophylaxis possible psych eval for anxiety See orders for detail
[2018-08-19] MEDS ORDERED: Multivitamin (MVI) 10 ML, Thiamine 100 MG, Folic Acid 1 MG in Sodium Chloride 0.9% 1,00... IV ONE (01:29)
[2018-08-19] MEDS: Dextrose 5%/0.9% NS 1,000 ML IV SCH ×2 (02:13→10:34)
[2018-08-19] MEDS ORDERED: Promethazine 12.5 mg/10 ml Syrup PO PRN (03:32)
[2018-08-19] MEDS ORDERED: Albuterol HFA 90 mcg/actuation (8 g) INH PRN (03:42)
--- NOTE | 2018-08-19 07:54 | CP.PCM.PN ---
<Alana Gutierrez - Last Filed: 08/19/18 10:41> Subjective - Date & Time of Evaluation Date of Evaluation: 08/19/18 Time of Evaluation: 07:40 - Subjective Subjective: Patient evaluated at bedside after called by nursing to report pt complains of severe abdominal pain. Patient reports severe diffuse abdominal pain, greatest in the epigastrium and right lower quadrant. Patient denies vomiting since admission, however reports mild nausea. Further questioning reveals pt has been unable to eat/drink anything in last 7 days 2/2 vomiting; she reports no BM and scant foul smelling, concentrated, cloudy urine. Patient reports previous similar episodes of abdominal pain, however none as severe and prolonged requiring hospital eval. Pt reports severe anxiety following a meeting with her counselor last friday, which she reports as the inciting event. Denies headache, chest pain, difficulty breathing, lower extremity pains. Objective - Vital Signs/Intake and Output Vital Signs (last 24 hours): Temp Pulse Resp BP Pulse Ox 98.6 F 82 20 133/89 94 L 08/19/18 07:00 08/19/18 07:00 08/19/18 07:00 08/19/18 07:00 08/19/18 07:00 - Medications Medications: Current Medications Acetaminophen (Tylenol 325mg Tab) 650 mg PO Q6 PRN PRN Reason: Pain, moderate (4-7) Hydrocodone Bitart/Acetaminophen (Vicodin 5 Mg-300 Mg) 1 tab PO Q4H PRN PRN Reason: Pain, severe (8-10) Stop: 08/26/18 01:19 Albuterol (Ventolin Hfa 90 Mcg/Actuation (8 G)) 2 puff INH RQ6 PRN PRN Reason: Wheezing Alprazolam (Xanax) 0.5 mg PO DAILY [facility] Famotidine (Pepcid) 20 mg PO DAILY [facility] Folic Acid (Folic Acid) 1 mg PO DAILY [facility] Heparin Sodium (Porcine) (Heparin) 5,000 units SC Q12H [facility] Dextrose/Sodium Chloride (Dextrose 5%/0.9% Ns 1000 Ml) 1,000 mls @ 150 mls/hr IV .Q6H40M [facility] Last Admin: 08/19/18 02:13 Dose: 150 mls/hr Multivitamins (Hexavitamin) 1 tab PO DAILY [facility] Paroxetine HCl (Paxil) 20 mg PO DAILY [facility] Promethazine HCl (Phenergan Syrup) 12.5 mg PO Q6 PRN PRN Reason: Nausea/Vomiting Thiamine HCl (Vitamin B1 Tab) 100 mg PO DAILY [facility] Trazodone HCl (Desyrel) 200 mg PO HS [facility] - Labs Labs: 08/18/18 20:47 08/18/18 20:47 - Constitutional Appears: No Acute Distress, Agitated - Head Exam Head Exam: ATRAUMATIC, NORMAL INSPECTION, NORMOCEPHALIC - Eye Exam Eye Exam: EOMI, Normal appearance - ENT Exam ENT Exam: Mucous Membranes Dry, Normal Exam - Neck Exam Neck Exam: Normal Inspection - Respiratory Exam Respiratory Exam: NORMAL BREATHING PATTERN. absent: Respiratory Distress - Cardiovascular Exam Cardiovascular Exam: REGULAR RHYTHM, +S1, +S2. absent: Tachycardia - GI/Abdominal Exam GI & Abdominal Exam: Soft, Tenderness (epigastrium/RLQ), Hypoactive Bowel Sounds. absent: Distended Additional comments: reticularis diffusely accross abdomen/pelvis/lower back - Extremities Exam Extremities Exam: Normal Capillary Refill, Normal Inspection. absent: Calf Tenderness, Pedal Edema - Back Exam Back Exam: absent: CVA tenderness (L), CVA tenderness (R) - Neurological Exam Neurological Exam: Alert, Awake, Oriented x3 - Psychiatric Exam Psychiatric exam: Anxious - Skin Skin Exam: Dry, Intact, Warm Additional comments: reticularis abdomen/pelvis/low back Assessment and Plan - Assessment and Plan (Free Text) Assessment: 33 year old female w/ pmhx of nephrolithiasis, anxiety, depression, asthma admitted for evaluation of abdominal pain/nausea/vomiting and ERIN Plan: Abdominal pain/Nausea/Vomiting lipase: 1476, hx of elevated lipase w/o dx of pancreatitis NPO IVF, D5 NS@150 Pain meds prn, tylenol, Vicodin, dilaudid Antiemetics prn, reglan Colace 100mg BID Multivitamins Electrolyte repletion as needed GI, Dr. Bianchi consulted Imaging: CT A/P(08/18): No acute abnormality. 2 non-obstructing renal calculi. No evidence of acute pancreatitis, no peripancreatic fluid collection/mass ERIN BUN/Cr 98/5.1 on admission--->73/3.1 s/p volume repletion Possibly 2/2 vomule depletion D5 NS@150, s/p 2L NS in ED I/Os f/u renal US Nephro, Dr. Jimenez consulted UTI, recurrent UA: 2+protein, 2+LE, 55WBC, 11 squamous f/u repeat UA f/u urine cx Depression/Anxiety Continue home paxil 20mg po qd continue home xanax 0.5mg po qd continue home trazodone 200mg po qd f/u UDS Psych, Dr. Aguayo consulted Asthma Continue home ventolin q6h prn Ppx VTE: heparin q12, SCD GI: Pepcid 20mg po qd Discussed w/ Dr. Schwarz -Alana Gutierrez, PGY-1 <Yo Schwarz - Last Filed: 08/19/18 14:47> Objective - Vital Signs/Intake and Output Vital Signs (last 24 hours): Temp Pulse Resp BP Pulse Ox 98.6 F 82 20 133/89 94 L 08/19/18 07:00 08/19/18 07:00 08/19/18 07:00 08/19/18 07:00 08/19/18 07:00 - Medications Medications: Current Medications Acetaminophen (Tylenol 325mg Tab) 650 mg PO Q6 PRN PRN Reason: Pain, moderate (4-7) Hydrocodone Bitart/Acetaminophen (Vicodin 5 Mg-300 Mg) 1 tab PO Q4H PRN PRN Reason: Pain, severe (8-10) Stop: 08/26/18 01:19 Last Admin: 08/19/18 13:56 Dose: 1 tab Albuterol (Ventolin Hfa 90 Mcg/Actuation (8 G)) 2 puff INH RQ6 PRN PRN Reason: Wheezing Alprazolam (Xanax) 0.5 mg PO DAILY [facility] Last Admin: 08/19/18 11:26 Dose: 0.5 mg Docusate Sodium (Colace) 100 mg PO BID [facility] Last Admin: 08/19/18 10:31 Dose: 100 mg Folic Acid (Folic Acid) 1 mg PO DAILY [facility] Last Admin: 08/19/18 10:31 Dose: 1 mg Heparin Sodium (Porcine) (Heparin) 5,000 units SC Q12H [facility] Potassium Chloride 40 meq/ (Sodium Chloride) 1,020 mls @ 150 mls/hr IV .Q6H48M [facility] Last Admin: 08/19/18 13:55 Dose: 150 mls/hr Ceftriaxone Sodium (Rocephin Iv 1 Gm Duplex) 50 mls @ 200 mls/hr IVPB Q12H [facility]; Protocol Metoclopramide HCl (Reglan) 10 mg IVP Q6H PRN PRN Reason: Nausea/Vomiting Multivitamins (Hexavitamin) 1 tab PO DAILY [facility] Last Admin: 08/19/18 10:31 Dose: 1 tab Pantoprazole Sodium (Protonix Ec Tab) 20 mg PO DAILY [facility] Paroxetine HCl (Paxil) 20 mg PO DAILY [facility] Last Admin: 08/19/18 10:32 Dose: 20 mg Thiamine HCl (Vitamin B1 Tab) 100 mg PO DAILY [facility] Last Admin: 08/19/18 10:32 Dose: 100 mg Trazodone HCl (Desyrel) 200 mg PO HS [facility] - Labs Labs: 08/18/18 20:47 08/19/18 07:50 Attending/Attestation - Attestation I have personally seen and examined this patient.: Yes I have fully participated in the care of the patient.: Yes I have reviewed all pertinent clinical information, including history, physical exam and plan: Yes Notes (Text): 08/19/18 14:43 Medical attending: Patient was seen and examined by me. Agree with the above note by the resident As mentioned above in the resident note, the patient does have a lot of anxiety - and according to the patient she developed nausea and vommitting last week after a stressful meeting. After this meeting she stopped eating and drinking due to nausea. When asked when the last time she had one cup of water she said before last week. After talking to her for some length - the patient's elevated BUN and creatine and H/H all at this moment seem secondary to her not drinking sufficient amounts of liquid due to her psychiatric situation. She is on IVF, we will also check renal U/S as well as nephrology evaluation and also GI evaluation. She was later in the morning observed by me walking slowly in the hallways not in any acute distress We really need to get a psychiatry evaluation Yo Schwarz
[2018-08-19] MEDS ORDERED: HYDROmorphone 0.5 mg/0.5 ml ISec IVP PRN (08:05)
[2018-08-19 08:41] LABS: ALB/GLOB RATIO 1.6 (1.0-2.1); ALBUMIN 3.8 g/dL (3.5-5.0); ALT/SGPT < 6 U/L (9-52); AST/SGOT 18 U/L (14-36); BLOOD UREA NITROGEN 73 mg/dL (7-17); CALCIUM 7.7 mg/dl (8.6-10.4); GFR NON-AFRICAN AMERICAN 17
--- NOTE | 2018-08-19 09:25 | CT ---
Date of service: 08/18/2018 PROCEDURE: CT Abdomen and Pelvis without intravenous contrast HISTORY: pancreatitis COMPARISON: 03/07/2018 TECHNIQUE: Without contrast.. Contrast dose: 0 Radiation dose: Total exam DLP = 305.85 mGy-cm. This CT exam was performed using one or more of the following dose reduction techniques: Automated exposure control, adjustment of the mA and/or kV according to patient size, and/or use of iterative reconstruction technique. FINDINGS: LOWER THORAX: Unremarkable. LIVER: Unremarkable. No gross lesion or ductal dilatation. GALLBLADDER AND BILE DUCTS: Unremarkable. PANCREAS: Unremarkable. No gross lesion or ductal dilatation. SPLEEN: Unremarkable. ADRENALS: Unremarkable. No mass. KIDNEYS AND URETERS: Two nonobstructing right renal calculi, 4 mm upper pole and 2 mm lower pole. No hydronephrosis. No left renal calculus. No renal mass. VASCULATURE: Unremarkable. No aortic aneurysm. No aortic atherosclerotic calcification or mural plaque present. BOWEL: Sigmoid diverticulosis without evidence of diverticulitis. No bowel obstruction. No other abnormal bowel loops are identified. APPENDIX: Unremarkable. Normal appendix. PERITONEUM: Unremarkable. No free fluid. No free air. LYMPH NODES: Unremarkable. No enlarged lymph nodes. BLADDER: Unremarkable. REPRODUCTIVE: Normal uterus. Probable 1.9 cm right ovarian cyst. BONES: No acute fracture. OTHER FINDINGS: None. IMPRESSION: No acute abnormality. Two nonobstructing right renal calculi. No. Evidence of acute pancreatitis. No peripancreatic fluid collection or pancreatic mass identified. The preliminary findings for this examination were reported by [facility] at 10:26 p.m. on 08/18/2018. There is discordance of this report with the preliminary findings. There is no CT evidence of pancreatitis at this time.
--- NOTE | 2018-08-19 09:42 | CP.PCM.CON ---
<AlinemarileemichaelCarlos Eduardo - Last Filed: 08/19/18 10:29> History of Present Illness - History of Present Illness History of Present Illness: GI Fellow PGY4, consult note. Nieves Man is a 33F presenting with progressive abdominal pain, nausea and vomiting. Her symptoms started 1 week ago, the pain is severe, epigastric cramping. She has a very long history of vomiting associated with anxiety. She has multiple admissions for cannabis dependence. She currently denies cannabis use in the last month. She does admit that taking very hot showers and bath up to 10x per day helps her symptoms. She evens uses a heating pad constantly to help with her symptoms. She has not been able to keep food or liquids down. She sees a therapist regularly. In the ED, workup showed symptoms and lab values associated with severe dehydration. PMHx - Anxiety, depression, bipolar, cannabis dependence. PSHx - renal stent FMHx - Denies GI Related cancers SocHx - Admits smoking 10cigs per day. Denies alcohol use. 12pt ROS completed and negative except for above. Past Patient History - Infectious Disease Hx of Infectious Diseases: None - Tetanus Immunizations Tetanus Immunization: Unknown - Past Medical History & Family History Past Medical History?: Yes - Past Social History Smoking Status: Heavy Smoker > 10 Cigarettes Daily - CARDIAC Hx Cardiac Disorders: No - PULMONARY Hx Asthma: Yes - NEUROLOGICAL Hx Neurological Disorder: No - HEENT Hx HEENT Problems: No - RENAL Hx Chronic Kidney Disease: Yes (SEE COMMENT) Hx Kidney Stones: Yes - ENDOCRINE/METABOLIC Hx Endocrine Disorders: No - HEMATOLOGICAL/ONCOLOGICAL Hx Blood Disorders: No - INTEGUMENTARY Hx Dermatological Problems: No - MUSCULOSKELETAL/RHEUMATOLOGICAL Hx Falls: No - GASTROINTESTINAL Hx Gastrointestinal Disorders: No - GENITOURINARY/GYNECOLOGICAL Hx Genitourinary Disorders: Yes (SEE COMMENT) Other/Comment: kidney stones - PSYCHIATRIC Hx Anxiety: Yes Hx Bipolar Disorder: Yes Hx Depression: Yes Hx Substance Use: No (Denied) - SURGICAL HISTORY Hx Surgeries: Yes (SEE COMMENT) Other/Comment: cysto/stent placement;Lithotripsy - ANESTHESIA Hx Anesthesia: Yes Hx Anesthesia Reactions: No Hx Malignant Hyperthermia: No Meds Allergies/Adverse Reactions: Allergies Allergy/AdvReac Type Severity Reaction Status Date / Time iodine Allergy Severe ANAPHYLAXIS Verified 08/18/18 20:22 ketorolac tromethamine Allergy Severe ANAPHYLAXIS Verified 08/18/18 20:22 [From Toradol] ondansetron HCl Allergy Severe ANAPHYLAXIS Verified 08/18/18 20:22 [From Zofran (as hydrochloride)] shellfish derived Allergy Severe ANAPHYLAXIS Verified 08/18/18 20:22 - Medications Medications: Current Medications Acetaminophen (Tylenol 325mg Tab) 650 mg PO Q6 PRN PRN Reason: Pain, moderate (4-7) Hydrocodone Bitart/Acetaminophen (Vicodin 5 Mg-300 Mg) 1 tab PO Q4H PRN PRN Reason: Pain, severe (8-10) Stop: 08/26/18 01:19 Albuterol (Ventolin Hfa 90 Mcg/Actuation (8 G)) 2 puff INH RQ6 PRN PRN Reason: Wheezing Alprazolam (Xanax) 0.[address] [facility] Docusate Sodium (Colace) 100 mg PO BID [facility] Famotidine (Pepcid) [address] [facility] Folic Acid (Folic Acid) [address] [facility] Heparin Sodium (Porcine) (Heparin) 5,[address] [facility] Hydromorphone HCl (Dilaudid) 0.5 mg IVP Q6H PRN PRN Reason: Pain, severe (8-10) Last Admin: 08/19/18 08:17 Dose: 0.5 mg Dextrose/Sodium Chloride (Dextrose 5%/0.9% Ns 1000 Ml) 1,000 mls @ 150 mls/hr IV .Q6H40M [facility] Last Admin: 08/19/18 02:13 Dose: 150 mls/hr Potassium Chloride (Potassium Chloride 20 Meq/100 Ml) 20 meq in 100 mls @ 50 mls/hr IVPB ONCE ONE Stop: 08/19/18 11:29 Metoclopramide HCl (Reglan) 10 mg IVP Q6H PRN PRN Reason: Nausea/Vomiting Multivitamins (Hexavitamin) [address] [facility] Paroxetine HCl (Paxil) 20 mg PO DAILY [facility] Thiamine HCl (Vitamin B1 Tab) 100 mg PO DAILY [facility] Trazodone HCl (Desyrel) [address] [facility] Physical Exam - Constitutional Appears: Non-toxic, No Acute Distress, Unkempt Additional comments: colicky - Eye Exam Eye Exam: EOMI, Normal appearance - ENT Exam ENT Exam: Mucous Membranes Dry. absent: Mucous Membranes Moist - GI/Abdominal Exam GI & Abdominal Exam: Normal Bowel Sounds, Soft, Tenderness. absent: Organomegaly Additional comments: Skin is heterogenous color. - Neurological Exam Neurological exam: Alert, CN II-XII Intact, Oriented x3 - Psychiatric Exam Psychiatric exam: Depressed, Flat Affect - Skin Skin Exam: Normal Color, Warm Results - Vital Signs Recent Vital Signs: Last Vital Signs Temp 98.6 F 08/19/18 07:00 Pulse 82 08/19/18 07:00 Resp 20 08/19/18 07:00 BP 133/89 08/19/18 07:00 Pulse Ox 94 L 08/19/18 07:00 - Labs Result Diagrams: 08/18/18 20:47 08/19/18 07:50 Labs: Laboratory Results - last 24 hr 08/18/18 08/18/18 08/18/18 20:47 20:47 20:47 WBC 13.2 H RBC 6.04 H Hgb 19.0 H D Hct 54.0 H MCV 89.4 D MCH 31.5 H MCHC 35.2 RDW 13.2 Plt Count 375 MPV 8.2 Neut % (Auto) 78.2 H Lymph % (Auto) 9.3 L [place] % (Auto) 11.0 H Eos % (Auto) 0.9 Baso % (Auto) 0.6 Neut # (Auto) 10.3 H Lymph # (Auto) 1.2 [place] # (Auto) 1.4 H Eos # (Auto) 0.1 Baso # (Auto) 0.1 Neutrophils % (Manual) 82 H Lymphocytes % (Manual) 12 L Monocytes % (Manual) 6 Platelet Estimate Normal Large Platelets Present Microcytosis (manual) Slight Sodium 126 L Potassium 3.8 Chloride 76 L D Carbon Dioxide 25 Anion Gap 28 H BUN 98 H Creatinine 5.1 H Est GFR ( Amer) 12 Est GFR (Non-Af Amer) 10 Random Glucose 97 Calcium 10.0 Phosphorus Magnesium Total Bilirubin 1.3 AST 28 ALT < 6 L D Alkaline Phosphatase 78 Total Protein 10.1 H Albumin 5.8 H D Globulin 4.3 H Albumin/Globulin Ratio 1.4 Lipase 1476 H Urine Color Yellow Urine Clarity Hazy Urine pH 5.0 Ur Specific [place] 1.014 Urine Protein 1+ H Urine Glucose (UA) Normal Urine Ketones Negative Urine Blood 2+ H Urine Nitrate Negative Urine Bilirubin Negative Urine Urobilinogen Normal Ur Leukocyte Esterase 2+ H Urine WBC (Auto) 55 H Urine RBC (Auto) 9 H Urine WBC Clumps (Auto) Occ H Ur Squamous Epith Cells 11 H Ur Transition Epith Cell 2 Urine Bacteria Few H Hyaline Casts 11-20 H Urine HCG, Qual Negative 08/19/18 07:50 WBC RBC Hgb Hct MCV MCH MCHC RDW Plt Count MPV Neut % (Auto) Lymph % (Auto) [place] % (Auto) Eos % (Auto) Baso % (Auto) Neut # (Auto) Lymph # (Auto) [place] # (Auto) Eos # (Auto) Baso # (Auto) Neutrophils % (Manual) Lymphocytes % (Manual) Monocytes % (Manual) Platelet Estimate Large Platelets Microcytosis (manual) Sodium 129 L Potassium 2.8 L Chloride 96 L D Carbon Dioxide 23 Anion Gap 14 BUN 73 H Creatinine 3.1 H Est GFR ( Amer) 21 Est GFR (Non-Af Amer) 17 Random Glucose 101 Calcium 7.7 L Phosphorus 4.9 H Magnesium 2.6 H Total Bilirubin 1.2 AST 18 ALT < 6 L Alkaline Phosphatase 54 Total Protein 6.1 L Albumin 3.8 Globulin 2.3 Albumin/Globulin Ratio 1.6 Lipase Urine Color Urine Clarity Urine pH Ur Specific [place] Urine Protein Urine Glucose (UA) Urine Ketones Urine Blood Urine Nitrate Urine Bilirubin Urine Urobilinogen Ur Leukocyte Esterase Urine WBC (Auto) Urine RBC (Auto) Urine WBC Clumps (Auto) Ur Squamous Epith Cells Ur Transition Epith Cell Urine Bacteria Hyaline Casts Urine HCG, Qual Assessment & Plan - Assessment and Plan (Free Text) Assessment: #Severe dehydration #Possible pancreatitis #Intractable vomiting - possible cannabis hyperemesis #ERNI, severe #Hyponatremia #Hypokalemia #Tobacco dependence #Bipolar PLAN: -CT A/P shows mild peripancreatic fat stranding. No obvious gallstones. -Obtain U/S to r/o gallstones. -Continue aggressive IVF hydration. Monitor HCT and BUN for downtrend. -Educated to discontinue smoking, an independent risk factor for pancreatitis -Educated to avoid Cannabis to help with nausea/vomiting -Anti-emetics in hospital as needed, apparently allergic to zofran, recommend reglan as needed, monitor for EPS, tardive dyskinesia -Monitor electrolytes. -No endoscopic evaluation at this time. Case discussed with Dr. Bianchi, see attestation. - Date & Time Date: 08/19/18 Time: 09:43 <Jd Bianchi - Last Filed: 08/19/18 10:46> Meds - Medications Medications: Current Medications Acetaminophen (Tylenol 325mg Tab) 650 mg PO Q6 PRN PRN Reason: Pain, moderate (4-7) Hydrocodone Bitart/Acetaminophen (Vicodin 5 Mg-300 Mg) 1 tab PO Q4H PRN PRN Reason: Pain, severe (8-10) Stop: 08/26/18 01:19 Albuterol (Ventolin Hfa 90 Mcg/Actuation (8 G)) 2 puff INH RQ6 PRN PRN Reason: Wheezing Alprazolam (Xanax) 0.[address] [facility] Docusate Sodium (Colace) [address] [facility] Last Admin: 08/19/18 10:31 Dose: 100 mg Famotidine (Pepcid) [address] [facility] Last Admin: 08/19/18 10:32 Dose: 20 mg Folic Acid (Folic Acid) [address] [facility] Last Admin: 08/19/18 10:31 Dose: 1 mg Heparin Sodium (Porcine) (Heparin) 5,[address] [facility] Hydromorphone HCl (Dilaudid) 0.5 mg IVP Q6H PRN PRN Reason: Pain, severe (8-10) Last Admin: 08/19/18 08:17 Dose: 0.5 mg Dextrose/Sodium Chloride (Dextrose 5%/0.9% Ns 1000 Ml) 1,000 mls @ 150 mls/hr IV .Q6H40M [facility] Last Admin: 08/19/18 10:34 Dose: 150 mls/hr Potassium Chloride (Potassium Chloride 20 Meq/100 Ml) 20 meq in 100 mls @ 50 mls/hr IVPB ONCE ONE Stop: 08/19/18 11:29 Last Admin: 08/19/18 10:34 Dose: 50 mls/hr Metoclopramide HCl (Reglan) 10 mg IVP Q6H PRN PRN Reason: Nausea/Vomiting Multivitamins (Hexavitamin) [address] [facility] Last Admin: 08/19/18 10:31 Dose: 1 tab Paroxetine HCl (Paxil) [address] [facility] Last Admin: 08/19/18 10:32 Dose: 20 mg Thiamine HCl (Vitamin B1 Tab) [address] [facility] Last Admin: 08/19/18 10:32 Dose: 100 mg Trazodone HCl (Desyrel) 200 mg PO [facility] Results - Vital Signs Recent Vital Signs: Last Vital Signs Temp 98.6 F 08/19/18 07:00 Pulse 82 08/19/18 07:00 Resp 20 08/19/18 07:00 BP 133/89 08/19/18 07:00 Pulse Ox 94 L 08/19/18 07:00 - Labs Result Diagrams: 08/18/18 20:47 08/19/18 07:50 Labs: Laboratory Results - last 24 hr 08/18/18 08/18/18 08/18/18 20:47 20:47 20:47 WBC 13.2 H RBC 6.04 H Hgb 19.0 H D Hct 54.0 H MCV 89.4 D MCH 31.5 H MCHC 35.2 RDW 13.2 Plt Count 375 MPV 8.2 Neut % (Auto) 78.2 H Lymph % (Auto) 9.3 L [place] % (Auto) 11.0 H Eos % (Auto) 0.9 Baso % (Auto) 0.6 Neut # (Auto) 10.3 H Lymph # (Auto) 1.2 [place] # (Auto) 1.4 H Eos # (Auto) 0.1 Baso # (Auto) 0.1 Neutrophils % (Manual) 82 H Lymphocytes % (Manual) 12 L Monocytes % (Manual) 6 Platelet Estimate Normal Large Platelets Present Microcytosis (manual) Slight Sodium 126 L Potassium 3.8 Chloride 76 L D Carbon Dioxide 25 Anion Gap 28 H BUN 98 H Creatinine 5.1 H Est GFR ( Amer) 12 Est GFR (Non-Af Amer) 10 Random Glucose 97 Calcium 10.0 Phosphorus Magnesium Total Bilirubin 1.3 AST 28 ALT < 6 L D Alkaline Phosphatase 78 Total Protein 10.1 H Albumin 5.8 H D Globulin 4.3 H Albumin/Globulin Ratio 1.4 Lipase 1476 H Urine Color Yellow Urine Clarity Hazy Urine pH 5.0 Ur Specific [place] 1.014 Urine Protein 1+ H Urine Glucose (UA) Normal Urine Ketones Negative Urine Blood 2+ H Urine Nitrate Negative Urine Bilirubin Negative Urine Urobilinogen Normal Ur Leukocyte Esterase 2+ H Urine WBC (Auto) 55 H Urine RBC (Auto) 9 H Urine WBC Clumps (Auto) Occ H Ur Squamous Epith Cells 11 H Ur Transition Epith Cell 2 Urine Bacteria Few H Hyaline Casts 11-20 H Urine HCG, Qual Negative 08/19/18 07:50 WBC RBC Hgb Hct MCV MCH MCHC RDW Plt Count MPV Neut % (Auto) Lymph % (Auto) [place] % (Auto) Eos % (Auto) Baso % (Auto) Neut # (Auto) Lymph # (Auto) [place] # (Auto) Eos # (Auto) Baso # (Auto) Neutrophils % (Manual) Lymphocytes % (Manual) Monocytes % (Manual) Platelet Estimate Large Platelets Microcytosis (manual) Sodium 129 L Potassium 2.8 L Chloride 96 L D Carbon Dioxide 23 Anion Gap 14 BUN 73 H Creatinine 3.1 H Est GFR ( Amer) 21 Est GFR (Non-Af Amer) 17 Random Glucose 101 Calcium 7.7 L Phosphorus 4.9 H Magnesium 2.6 H Total Bilirubin 1.2 AST 18 ALT < 6 L Alkaline Phosphatase 54 Total Protein 6.1 L Albumin 3.8 Globulin 2.3 Albumin/Globulin Ratio 1.6 Lipase Urine Color Urine Clarity Urine pH Ur Specific [place] Urine Protein Urine Glucose (UA) Urine Ketones Urine Blood Urine Nitrate Urine Bilirubin Urine Urobilinogen Ur Leukocyte Esterase Urine WBC (Auto) Urine RBC (Auto) Urine WBC Clumps (Auto) Ur Squamous Epith Cells Ur Transition Epith Cell Urine Bacteria Hyaline Casts Urine HCG, Qual Attending/Attestation - Attestation I have personally seen and examined this patient.: Yes I have fully participated in the care of the patient.: Yes I have reviewed all pertinent clinical information: Yes Notes (Text): 08/19/18 10:39 Patient know to have frequent admissions for cannabis dependence presents with abdominal pain, severe dehydration with ERIN, hyperlipasemia with no radiologic evidence of acute pancreatitis, vomiting and U/A showing white cells, bacteria and trace blood. r/o UTI as source for dehydration and white count. Urine culture pending. No h/o of EtoH or IVDA. Rec/ IV fluids and renal consult Psychiatric follow up needed Repeat U/A, C and S Protonix 40mg daily Begin clear liquids as tolerated No plans for EGD at this time.
[2018-08-19] MEDS: Multiple Vitamins Tab PO SCH (10:31)
--- NOTE | 2018-08-19 10:39 | US ---
Renal/urinary bladder ultrasound Limited abdominal ultrasound Indication: hx stones/frequent UTIs Comparison: CT abdomen and pelvis without contrast performed 08/18/18 Findings: The liver appears within normal limits in echotexture and size measuring 15.2 cm. The main portal vein appears patent with normal directional flow. There is no evidence of intrahepatic ductal dilatation. The common bile duct appears within normal limits of caliber, measuring 5 mm. The gallbladder appears unremarkable. There is no evidence of gallbladder wall thickening, pericholecystic fluid, or stones. Negative sonographic Renae's sign as assessed by the electric crane operator. The pancreas was not visualized. The right kidney measures 10.6 x 6.3 x 7.5 cm and is without evidence of obstructing calculus or hydronephrosis. Echogenic renal parenchyma. 4 mm nonobstructing midpole calculus. The left kidney measures 10.6 x 6.4 x 6.1 cm and is without evidence of calculus or hydronephrosis. Echogenic renal parenchyma. Prevoid urinary bladder measures 7.0 x 8.1 x 10.1 cm, calculated volume 299.4 mL. No postvoid residual. Bilateral ureteral jets are identified. The visualized abdominal aorta appears within normal limits caliber. The visualized IVC appear grossly unremarkable. Impression: Echogenic renal parenchyma may be seen in the setting of medical renal disease. 4 mm nonobstructing right midpole calculus. No hydronephrosis. Prevoid urinary bladder measures 7.0 x 8.1 x 10.1 cm, calculated volume 299.4 mL. No postvoid residual. Bilateral ureteral jets are identified.
[2018-08-19 12:31] LABS: SQUAMOUS EPITHIAL 3 /hpf (0-5); URINE BACTERIA MOD (<OCC); URINE BILIRUBIN NEGATIVE (NEGATIVE); URINE BLOOD 1+ (NEGATIVE); URINE CLARITY Hazy (Clear); URINE COLOR Yellow (YELLOW); URINE GLUCOSE (UA) NORMAL (Normal); URINE LEUKOCYTE ESTERASE TRACE Leu/uL (Negative); URINE PROTEIN NEGATIVE (NEGATIVE); URINE UROBILINOGEN NORMAL mg/dL (0.2-1.0)
[2018-08-19 13:05] LABS: PHENCYCLIDINE, UR NEGATIVE (NEGATIVE)
[2018-08-19] MEDS ORDERED: Potassium Chloride 20 mEq/15 ml LIQ UD PO ONE (13:19)
[2018-08-19 13:37] LABS: BARBITURATES, UR NEGATIVE (NEGATIVE)
[2018-08-19 13:41] LABS: OPIATES, UR POSITIVE (NEGATIVE)
[2018-08-19] MEDS: Hydrocodone/Acetaminophen 5 mg /300 mg Tab PO PRN (13:56)
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
[2018-08-19 14:24] LABS: BENZODIAZEPINES, UR POSITIVE (NEGATIVE)
[2018-08-19 15:01] LABS: VENOUS BLOOD GAS BASE EXCESS -4.2 mmol/L (0.0-2.0); VENOUS BLOOD GAS PCO2 38 mmHg (40-60); VENOUS BLOOD GAS PO2 64 mm/Hg (30-55); VENOUS BLOOD PH 7.35 (7.32-7.43)
[2018-08-19] MEDS: cefTRIAXone IV 1 gm in Dextros 50 ML IVPB SCH (16:30)
[2018-08-19 20:05] LABS: INR 1.2; PROTHROMBIN TIME 12.8 SECONDS (9.7-12.2)
[2018-08-19 20:08] LABS: CALCIUM 7.7 mg/dl (8.6-10.4)
--- NOTE | 2018-08-20 02:22 | CON ---
DATE: 08/19/2018 [facility] NEPHROLOGY CONSULTATION HISTORY OF PRESENT ILLNESS: 33-year-old female with past medical history of depression, anxiety, and asthma, presented with one week of vomiting and abdominal pain; nephrology is being consulted for acute kidney injury. Patient reports vomiting episodes going on for approximately the past one week, has had decreased p.o. intake during this period. Started to have some p.o. intake yesterday. Reports decreased urination lately over the past few days, although has increased since being started on IV fluids. The patient, otherwise, denies taking any pain medication. Records also indicate the patient had diarrhea for several days. The patient currently does not have any vomiting since presentation. PAST MEDICAL HISTORY: As above. Also, history of nephrolithiasis with stent placed presumably in ureter several years ago. SOCIAL HISTORY: Current smoker. FAMILY HISTORY: Mother with hypertension. REVIEW OF SYSTEMS: CONSTITUTIONAL: Record indicates the patient did have chills and body aches. HEENT: Reports poor vision, corrected with glasses. CARDIOVASCULAR: Reports intermittent palpitation related to her anxiety. RESPIRATORY: Reports some sporadic coughing, otherwise no dyspnea. GASTROINTESTINAL: As per HPI. GENITOURINARY: As per HPI. No dysuria. EXTREMITIES: Denies any leg edema. MUSCULOSKELETAL: No arthralgias. SKIN: No pruritus or rashes. NEUROLOGIC: No syncope reported. PSYCHIATRIC: History of anxiety and depression. PHYSICAL EXAMINATION: VITAL SIGNS: This morning, blood pressure 133/89, heart rate 82, respirations 20, temperature 98.6, O2 sat 94% on room air. GENERAL: No distress. Conversing coherently in full sentences. HEENT: Moist mucous membranes. Nonicteric. No cervical lymphadenopathy. RESPIRATORY: Lungs clear to auscultation bilaterally with some minimal scattered wheezing. No rhonchi. No rales. CARDIOVASCULAR: Heart sounds S1 and S2, normal. No murmur. No gallops. No rubs. GASTROINTESTINAL: Abdomen soft, tenderness to moderate palpation. GENITOURINARY: No bladder distention. EXTREMITIES: No leg edema. SKIN: Warm. No cyanosis. NEUROLOGIC: No resting tremor. PSYCHIATRIC: Normal mood, normal affect. LABORATORY DATA: CBC from last night; WBC 13.2, hemoglobin 19, hematocrit 54, platelets 375. Chemistry panel this morning; sodium 129, potassium 2.8, chloride 96, bicarb 23, BUN 73, creatinine 3.1 (decreased from 98 and 5.1 last night), calcium 7.7, glucose 101, phosphorus 4.9, magnesium 2.6, albumin 3.8 (decreased from 5.8 last night). Renal ultrasound directly visualized showing increased echogenicity of kidneys bilaterally. ASSESSMENT AND PLAN: 1. Acute kidney injury, improvement with aggressive intravascular volume repletion is consistent with prerenal etiology. Currently, with stable volume status. Hemodynamically stable. We will continue to give intravenous fluids with normal saline at 150 mL per hour. See below regarding electrolytes. 2. Electrolyte imbalance. With hyponatremia, hypokalemia, metabolic alkalosis with superimposed high anion gap metabolic acidosis on presentation, all in the setting of profuse gastrointestinal losses from vomiting and acute renal failure. Hyponatremia and acid/base imbalance have improved with intravenous fluids but has had ensuing progression of hypokalemia, presumably due to renal wasting from IVF. Will need aggressive potassium replenishment, adding 40 mEq of potassium chloride per liter to above intravenous fluids. We will check BMP this evening. 3. Proteinuria, seen on multiple urinalysis samples. Unclear significance of increased echogenicity mentioned on renal ultrasound as renal function was essentially normal just about one month ago. Nevertheless, we will check for proteinuria with random urine protein/creatinine ratio and repeat UA. Thank you for this referral. We will be following up closely. Tobi Jimenez MD [facility]
[2018-08-20] MEDS: cefTRIAXone IV 1 gm in Dextros 50 ML IVPB SCH ×2 (02:37→15:34)
[2018-08-20] MEDS: Hydrocodone/Acetaminophen 5 mg /300 mg Tab PO PRN ×3 (03:35→17:54)
--- NOTE | 2018-08-20 06:40 | CP.PCM.PN ---
<Alana Gutierrez - Last Filed: 08/20/18 11:48> Subjective - Date & Time of Evaluation Date of Evaluation: 08/20/18 Time of Evaluation: 06:45 - Subjective Subjective: Patient examined at bedside. No acute overnight events. Patient reports frequent urination and several loose BMs yesterday. Reports improvement in abdominal pain, however reports 1 cramping episode that awoke her from her sleep for which she requested pain medication with improvement in symptoms. Patient reports she was able to tolerate liquid diet last night without nausea or vomiting. Patient reports increased energy since arrival. Denies chest pain, SOB, vomiting. Objective - Vital Signs/Intake and Output Vital Signs (last 24 hours): Temp Pulse Resp BP Pulse Ox 98.2 F 75 20 98/56 L 97 08/19/18 23:00 08/19/18 23:00 08/19/18 23:00 08/19/18 23:00 08/19/18 23:00 Intake and Output: 08/19/18 08/20/18 18:59 06:59 Intake Total 1240 Balance 1240 - Medications Medications: Current Medications Acetaminophen (Tylenol 325mg Tab) 650 mg PO Q6 PRN PRN Reason: Pain, moderate (4-7) Hydrocodone Bitart/Acetaminophen (Vicodin 5 Mg-300 Mg) 1 tab PO Q4H PRN PRN Reason: Pain, severe (8-10) Stop: 08/26/18 01:19 Last Admin: 08/20/18 03:35 Dose: 1 tab Albuterol (Ventolin Hfa 90 Mcg/Actuation (8 G)) 2 puff INH RQ6 PRN PRN Reason: Wheezing Alprazolam (Xanax) 0.5 mg PO DAILY [facility] Last Admin: 08/19/18 11:26 Dose: 0.5 mg Docusate Sodium (Colace) 100 mg PO BID [facility] Last Admin: 08/19/18 17:55 Dose: Not Given Folic Acid (Folic Acid) 1 mg PO DAILY [facility] Last Admin: 08/19/18 10:31 Dose: 1 mg Heparin Sodium (Porcine) (Heparin) 5,000 units SC Q12H [facility] Last Admin: 08/19/18 21:00 Dose: 5,000 units Potassium Chloride 40 meq/ (Sodium Chloride) 1,020 mls @ 150 mls/hr IV .Q6H48M [facility] Last Admin: 08/20/18 06:38 Dose: 150 mls/hr Ceftriaxone Sodium (Rocephin Iv 1 Gm Duplex) 50 mls @ 100 mls/hr IVPB Q12H [facility]; Protocol Last Admin: 08/20/18 02:37 Dose: 100 mls/hr Metoclopramide HCl (Reglan) 10 mg IVP Q6H PRN PRN Reason: Nausea/Vomiting Multivitamins (Hexavitamin) 1 tab PO DAILY [facility] Last Admin: 08/19/18 10:31 Dose: 1 tab Pantoprazole Sodium (Protonix Ec Tab) 20 mg PO DAILY [facility] Paroxetine HCl (Paxil) 20 mg PO DAILY [facility] Last Admin: 08/19/18 10:32 Dose: 20 mg Thiamine HCl (Vitamin B1 Tab) 100 mg PO DAILY [facility] Last Admin: 08/19/18 10:32 Dose: 100 mg Trazodone HCl (Desyrel) 200 mg PO HS [facility] Last Admin: 08/19/18 21:35 Dose: 200 mg - Labs Labs: 08/18/18 20:47 08/19/18 19:48 PT 12.8 SECONDS (9.7-12.2) H 08/19/18 19:48 INR 1.2 08/19/18 19:48 APTT 38 SECONDS (21-34) H 08/19/18 19:48 - Constitutional Appears: Non-toxic, No Acute Distress - Head Exam Head Exam: ATRAUMATIC, NORMAL INSPECTION, NORMOCEPHALIC - Eye Exam Eye Exam: EOMI, Normal appearance - ENT Exam ENT Exam: Mucous Membranes Moist, Normal Exam - Neck Exam Neck Exam: Normal Inspection - Respiratory Exam Respiratory Exam: Clear to Ausculation Bilateral, NORMAL BREATHING PATTERN - Cardiovascular Exam Cardiovascular Exam: REGULAR RHYTHM, +S1, +S2 - GI/Abdominal Exam GI & Abdominal Exam: Soft, Tenderness (diffusely, worst in epigastrium), Normal Bowel Sounds. absent: Distended - Extremities Exam Extremities Exam: Normal Inspection. absent: Calf Tenderness, Pedal Edema - Neurological Exam Neurological Exam: Alert, Awake, Oriented x3 - Psychiatric Exam Psychiatric exam: Normal Affect, Normal Mood - Skin Skin Exam: Dry, Intact, Warm Additional comments: reticular discoloration to abdomen/pelvis/low back Assessment and Plan - Assessment and Plan (Free Text) Assessment: 33 year old female w/ pmhx of nephrolithiasis, anxiety, depression, asthma admitted for evaluation of abdominal pain/nausea/vomiting and ERIN Plan: Abdominal pain/Nausea/Vomiting lipase: 1476, hx of elevated lipase w/o dx of pancreatitis; downtrending---->799 Tolerated liquid diet, advanced to regular diet for lunch IVF, NS@150 Pain meds prn, tylenol, Vicodin, dilaudid-d/c-ed no longer indicated. Antiemetics prn, reglan Patient now having BMs, loose stools Multivitamins Electrolyte repletion as needed GI, Dr. Bianchi consulted Imaging: CT A/P(08/18): No acute abnormality. 2 non-obstructing renal calculi. No evidence of acute pancreatitis, no peripancreatic fluid collection/mass ERNI, improving BUN/Cr 98/5.1 on admission--->73/3.1 s/p volume repletion BUN/Cr near baseline, 26/1.1 D5 NS@150, s/p 2L NS in ED I/Os Renal US negative for acute findings Nephro, Dr. Jimenez consulted UTI, recurrent UA: 2+protein, 2+LE, 55WBC, 11 squamous f/u urine cx Started on Rocephin 1g iv Q12h Depression/Anxiety Continue home paxil 20mg po qd continue home xanax 0.5mg po qd continue home trazodone 200mg po qd UDS + for opiates, cannabinoids, benzos Psych, Dr. Aguayo consulted Asthma Continue home ventolin q6h prn Ppx VTE: heparin q12, SCD GI: Pepcid 20mg po qd Discussed w/ Dr. Schwarz -Alana Gutierrez, PGY-1 <Yo Schwarz H - Last Filed: 08/20/18 14:38> Objective - Vital Signs/Intake and Output Vital Signs (last 24 hours): Temp Pulse Resp BP Pulse Ox 98 F 72 18 121/77 98 08/20/18 07:00 08/20/18 07:00 08/20/18 07:00 08/20/18 07:00 08/20/18 07:00 Intake and Output: 08/20/18 08/20/18 06:59 18:59 Intake Total 1240 950 Balance 1240 950 - Medications Medications: Current Medications Acetaminophen (Tylenol 325mg Tab) 650 mg PO Q6 PRN PRN Reason: Pain, moderate (4-7) Hydrocodone Bitart/Acetaminophen (Vicodin 5 Mg-300 Mg) 1 tab PO Q4H PRN PRN Reason: Pain, severe (8-10) Stop: 08/26/18 01:19 Last Admin: 08/20/18 07:35 Dose: 1 tab Albuterol (Ventolin Hfa 90 Mcg/Actuation (8 G)) 2 puff INH RQ6 PRN PRN Reason: Wheezing Alprazolam (Xanax) 0.5 mg PO DAILY [facility] Last Admin: 08/20/18 09:39 Dose: 0.5 mg Docusate Sodium (Colace) 100 mg PO BID [facility] Last Admin: 08/20/18 09:38 Dose: Not Given Folic Acid (Folic Acid) 1 mg PO DAILY [facility] Last Admin: 08/20/18 09:38 Dose: 1 mg Heparin Sodium (Porcine) (Heparin) 5,000 units SC Q12H [facility] Last Admin: 08/20/18 07:36 Dose: 5,000 units Ceftriaxone Sodium (Rocephin Iv 1 Gm Duplex) 50 mls @ 100 mls/hr IVPB Q12H [facility]; Protocol Last Admin: 08/20/18 02:37 Dose: 100 mls/hr Sodium Chloride (Sodium Chloride 0.9%) 1,000 mls @ 100 mls/hr IV .Q10H [facility] Last Admin: 08/20/18 12:04 Dose: 100 mls/hr Metoclopramide HCl (Reglan) 10 mg IVP Q6H PRN PRN Reason: Nausea/Vomiting Multivitamins (Hexavitamin) 1 tab PO DAILY [facility] Last Admin: 08/20/18 09:38 Dose: 1 tab Pantoprazole Sodium (Protonix Ec Tab) 20 mg PO DAILY [facility] Last Admin: 08/20/18 10:13 Dose: Not Given Paroxetine HCl (Paxil) 20 mg PO DAILY [facility] Last Admin: 08/20/18 09:39 Dose: 20 mg Thiamine HCl (Vitamin B1 Tab) 100 mg PO DAILY [facility] Last Admin: 08/20/18 09:39 Dose: 100 mg Trazodone HCl (Desyrel) 200 mg PO HS [facility] Last Admin: 08/19/18 21:35 Dose: 200 mg - Labs Labs: 08/20/18 08:07 08/20/18 08:07 PT 12.8 SECONDS (9.7-12.2) H 08/19/18 19:48 INR 1.2 08/19/18 19:48 APTT 38 SECONDS (21-34) H 08/19/18 19:48 Attending/Attestation - Attestation I have personally seen and examined this patient.: Yes I have fully participated in the care of the patient.: Yes I have reviewed all pertinent clinical information, including history, physical exam and plan: Yes Notes (Text): 08/20/18 14:36 Medical attending: Patient was seen and examined by me. Agree with the above note by the resident Earlier in the morning the patient was reportedly doing very well - however when I came and saw the patient during rounds she then told me she is no longer feeling well and that she felt anxious again. She is willing to try a regular diet to see how she does She has been observed by me and staff to be walking around in the hallway She remains on the IVF, the creatine continues to decrease. The patient reports she is now urinating more and also having more BMs finally. Yo Schwarz
[2018-08-20 08:30] LABS: ALB/GLOB RATIO 1.4 (1.0-2.1); ALBUMIN 2.9 g/dL (3.5-5.0); ALT/SGPT 12 U/L (9-52); AMYLASE 95 U/L (30-110); AST/SGOT 15 U/L (14-36); BLOOD UREA NITROGEN 26 mg/dL (7-17); CALCIUM 7.6 mg/dl (8.6-10.4); GFR NON-AFRICAN AMERICAN 57; LIPASE 799 U/L (23-300)
[2018-08-20 08:37] LABS: BASO % 0.7 % (0.0-2.0); EOS # 0.2 K/uL (0.0-0.7); EOS % 2.5 % (0.0-4.0); LYMPH # 1.5 K/uL (1.0-4.3); LYMPH % 23.6 % (20.0-40.0); MEAN CORPUSCULAR HEMOGLOBIN 31.8 pg (27.0-31.0); MEAN CORPUSCULAR HGB CONC 33.5 g/dL (33.0-37.0); MEAN PLATELET VOLUME 8.6 fL (7.2-11.7); MONO # 0.9 K/uL (0.0-0.8); MONO % 13.9 % (0.0-10.0); NEUT # 3.9 K/uL (1.8-7.0); NEUT % 59.3 % (50.0-75.0); NRBC % 0.1 % (0.0-2.0); RBC 3.93 Mil/uL (3.80-5.20); RED CELL DISTRIBUTION WIDTH 13.1 % (11.5-14.5); WHITE BLOOD COUNT 6.6 K/uL (4.8-10.8)
[2018-08-20 08:46] LABS: HEMOGLOBIN 12.5 g/dL (11.0-16.0); MEAN CELL VOLUME 94.9 fL (81.0-99.0)
--- NOTE | 2018-08-20 08:48 | CP.PCM.PN ---
<CelestemichaelCarlos Eduardo - Last Filed: 08/20/18 08:49> Subjective - Date & Time of Evaluation Date of Evaluation: 08/20/18 Time of Evaluation: 08:45 - Subjective Subjective: Patient is doing better, tolerating CLD. Abdominal pain, nausea improving. She states she had 3 loose BMs yesterday. Objective - Vital Signs/Intake and Output Vital Signs (last 24 hours): Temp Pulse Resp BP Pulse Ox 98.2 F 75 20 98/56 L 97 08/19/18 23:00 08/19/18 23:00 08/19/18 23:00 08/19/18 23:00 08/19/18 23:00 Intake and Output: 08/20/18 08/20/18 06:59 18:59 Intake Total 1240 Balance 1240 - Medications Medications: Current Medications Acetaminophen (Tylenol 325mg Tab) 650 mg PO Q6 PRN PRN Reason: Pain, moderate (4-7) Hydrocodone Bitart/Acetaminophen (Vicodin 5 Mg-300 Mg) 1 tab PO Q4H PRN PRN Reason: Pain, severe (8-10) Stop: 08/26/18 01:19 Last Admin: 08/20/18 07:35 Dose: 1 tab Albuterol (Ventolin Hfa 90 Mcg/Actuation (8 G)) 2 puff INH RQ6 PRN PRN Reason: Wheezing Alprazolam (Xanax) 0.5 mg PO DAILY [facility] Last Admin: 08/19/18 11:26 Dose: 0.5 mg Docusate Sodium (Colace) 100 mg PO BID [facility] Last Admin: 08/19/18 17:55 Dose: Not Given Folic Acid (Folic Acid) 1 mg PO DAILY [facility] Last Admin: 08/19/18 10:31 Dose: 1 mg Heparin Sodium (Porcine) (Heparin) 5,000 units SC Q12H [facility] Last Admin: 08/20/18 07:36 Dose: 5,000 units Potassium Chloride 40 meq/ (Sodium Chloride) 1,020 mls @ 150 mls/hr IV .Q6H48M [facility] Last Admin: 08/20/18 06:38 Dose: 150 mls/hr Ceftriaxone Sodium (Rocephin Iv 1 Gm Duplex) 50 mls @ 100 mls/hr IVPB Q12H [facility]; Protocol Last Admin: 08/20/18 02:37 Dose: 100 mls/hr Metoclopramide HCl (Reglan) 10 mg IVP Q6H PRN PRN Reason: Nausea/Vomiting Multivitamins (Hexavitamin) 1 tab PO DAILY [facility] Last Admin: 08/19/18 10:31 Dose: 1 tab Pantoprazole Sodium (Protonix Ec Tab) 20 mg PO DAILY [facility] Paroxetine HCl (Paxil) 20 mg PO DAILY [facility] Last Admin: 08/19/18 10:32 Dose: 20 mg Thiamine HCl (Vitamin B1 Tab) 100 mg PO DAILY [facility] Last Admin: 08/19/18 10:32 Dose: 100 mg Trazodone HCl (Desyrel) 200 mg PO HS [facility] Last Admin: 08/19/18 21:35 Dose: 200 mg - Labs Labs: 08/18/18 20:47 08/20/18 08:07 PT 12.8 SECONDS (9.7-12.2) H 08/19/18 19:48 INR 1.2 08/19/18 19:48 APTT 38 SECONDS (21-34) H 08/19/18 19:48 - Constitutional Appears: Non-toxic, No Acute Distress - Head Exam Head Exam: ATRAUMATIC, NORMAL INSPECTION - Respiratory Exam Respiratory Exam: Clear to Ausculation Bilateral, NORMAL BREATHING PATTERN - Cardiovascular Exam Cardiovascular Exam: REGULAR RHYTHM, +S1, +S2 - GI/Abdominal Exam GI & Abdominal Exam: Soft, Normal Bowel Sounds. absent: Tenderness - Extremities Exam Extremities Exam: Normal Inspection. absent: Pedal Edema - Psychiatric Exam Psychiatric exam: Normal Affect, Normal Mood - Skin Skin Exam: Normal Color, Warm Assessment and Plan - Assessment and Plan (Free Text) Assessment: #Severe dehydration #Possible pancreatitis #Intractable vomiting - possible cannabis hyperemesis vs psych related #ERIN, severe #Hyponatremia #Hypokalemia #Tobacco dependence #Bipolar PLAN: -CT A/P final read shows NO pancreatitis. -Continue aggressive IVF hydration. Monitor HCT and BUN for downtrend. -Educated to avoid Cannabis to help with nausea/vomiting -Anti-emetics in hospital as needed, apparently allergic to zofran, recommend reglan as needed, monitor for EPS, tardive dyskinesia -Monitor electrolytes. -No endoscopic evaluation at this time. -OK to start regular diet -Continue PPI, d/c at time of discharge -Follow up psych evaluation Case discussed with Dr. Bianchi, see attestation. <Jd Bianchi - Last Filed: 08/20/18 10:38> Objective - Vital Signs/Intake and Output Vital Signs (last 24 hours): Temp Pulse Resp BP Pulse Ox 98.2 F 75 20 98/56 L 97 08/19/18 23:00 08/19/18 23:00 08/19/18 23:00 08/19/18 23:00 08/19/18 23:00 Intake and Output: 08/20/18 08/20/18 06:59 18:59 Intake Total 1240 Balance 1240 - Medications Medications: Current Medications Acetaminophen (Tylenol 325mg Tab) 650 mg PO Q6 PRN PRN Reason: Pain, moderate (4-7) Hydrocodone Bitart/Acetaminophen (Vicodin 5 Mg-300 Mg) 1 tab PO Q4H PRN PRN Reason: Pain, severe (8-10) Stop: 08/26/18 01:19 Last Admin: 08/20/18 07:35 Dose: 1 tab Albuterol (Ventolin Hfa 90 Mcg/Actuation (8 G)) 2 puff INH RQ6 PRN PRN Reason: Wheezing Alprazolam (Xanax) 0.5 mg PO DAILY [facility] Last Admin: 08/20/18 09:39 Dose: 0.5 mg Docusate Sodium (Colace) 100 mg PO BID [facility] Last Admin: 08/20/18 09:38 Dose: Not Given Folic Acid (Folic Acid) 1 mg PO DAILY [facility] Last Admin: 08/20/18 09:38 Dose: 1 mg Heparin Sodium (Porcine) (Heparin) 5,000 units SC Q12H [facility] Last Admin: 08/20/18 07:36 Dose: 5,000 units Ceftriaxone Sodium (Rocephin Iv 1 Gm Duplex) 50 mls @ 100 mls/hr IVPB Q12H [facility]; Protocol Last Admin: 08/20/18 02:37 Dose: 100 mls/hr Sodium Chloride (Sodium Chloride 0.9%) 1,000 mls @ 100 mls/hr IV .Q10H [facility] Metoclopramide HCl (Reglan) 10 mg IVP Q6H PRN PRN Reason: Nausea/Vomiting Multivitamins (Hexavitamin) 1 tab PO DAILY [facility] Last Admin: 04/04/19 09:38 Dose: 1 tab Pantoprazole Sodium (Protonix Ec Tab) 20 mg PO DAILY [facility] Last Admin: 08/20/18 10:13 Dose: Not Given Paroxetine HCl (Paxil) 20 mg PO DAILY [facility] Last Admin: 08/20/18 09:39 Dose: 20 mg Thiamine HCl (Vitamin B1 Tab) 100 mg PO DAILY [facility] Last Admin: 08/20/18 09:39 Dose: 100 mg Trazodone HCl (Desyrel) 200 mg PO HS [facility] Last Admin: 08/19/18 21:35 Dose: 200 mg - Labs Labs: 08/20/18 08:07 08/20/18 08:07 PT 12.8 SECONDS (9.7-12.2) H 08/19/18 19:48 INR 1.2 08/19/18 19:48 APTT 38 SECONDS (21-34) H 08/19/18 19:48 Attending/Attestation - Attestation I have personally seen and examined this patient.: Yes I have fully participated in the care of the patient.: Yes I have reviewed all pertinent clinical information, including history, physical exam and plan: Yes Notes (Text): 08/20/18 10:36 Patient seen and examined with GI Fellow. Note reviewed. Patient feeling better. Able to tolerate diet thus far. Moved bowels well. Refusing transfer to Psych for anxiety management. Drug screen noted. Urine culture still pending as repeat U/A still showed some WBC''s and bacteriurea. (Had gotten abx in ED) No further active GI problem at present. NO further w/u needed. Recall as needed. Primary Care clinic followup as needed. Thank you.
[2018-08-20] MEDS: Multiple Vitamins Tab PO SCH (09:38)
[2018-08-20] MEDS ORDERED: Pantoprazole 20 mg EC Tab PO SCH (10:00)
[2018-08-20] MEDS ORDERED: Petrolatum Oint Foilpak (5 gm) TOP ONE (10:15)
[2018-08-20] MEDS: Sodium Chloride 0.9% 1,000 ML IV SCH ×2 (12:04→20:10)
[2018-08-20 18:18] VITALS: RESP 20
--- NOTE | 2018-08-20 22:47 | CP.PCM.PN ---
Subjective - Date & Time of Evaluation Date of Evaluation: 08/20/18 Time of Evaluation: 12:00 - Subjective Subjective: Patient reports tolerating liquid diet well; will start regular diet today; Objective - Vital Signs/Intake and Output Vital Signs (last 24 hours): Temp Pulse Resp BP Pulse Ox 98.2 F 64 20 123/80 98 08/20/18 15:00 08/20/18 15:00 08/20/18 15:00 08/20/18 15:00 08/20/18 15:00 Intake and Output: 08/20/18 08/21/18 18:59 06:59 Intake Total 950 Balance 950 - Medications Medications: Current Medications Acetaminophen (Tylenol 325mg Tab) 650 mg PO Q6 PRN PRN Reason: Pain, moderate (4-7) Hydrocodone Bitart/Acetaminophen (Vicodin 5 Mg-300 Mg) 1 tab PO Q4H PRN PRN Reason: Pain, severe (8-10) Stop: 08/26/18 01:19 Last Admin: 08/20/18 17:54 Dose: 1 tab Albuterol (Ventolin Hfa 90 Mcg/Actuation (8 G)) 2 puff INH RQ6 PRN PRN Reason: Wheezing Alprazolam (Xanax) 0.5 mg PO DAILY [facility] Last Admin: 08/20/18 09:39 Dose: 0.5 mg Docusate Sodium (Colace) 100 mg PO BID [facility] Last Admin: 08/20/18 17:37 Dose: Not Given Folic Acid (Folic Acid) 1 mg PO DAILY [facility] Last Admin: 08/20/18 09:38 Dose: 1 mg Heparin Sodium (Porcine) (Heparin) 5,000 units SC Q12H [facility] Last Admin: 08/20/18 20:07 Dose: 5,000 units Ceftriaxone Sodium (Rocephin Iv 1 Gm Duplex) 50 mls @ 100 mls/hr IVPB Q12H [facility]; Protocol Last Admin: 08/20/18 15:34 Dose: 100 mls/hr Sodium Chloride (Sodium Chloride 0.9%) 1,000 mls @ 100 mls/hr IV .Q10H [facility] Last Admin: 08/20/18 20:10 Dose: 100 mls/hr Metoclopramide HCl (Reglan) 10 mg IVP Q6H PRN PRN Reason: Nausea/Vomiting Multivitamins (Hexavitamin) 1 tab PO DAILY [facility] Last Admin: 08/20/18 09:38 Dose: 1 tab Pantoprazole Sodium (Protonix Ec Tab) 20 mg PO DAILY [facility] Last Admin: 08/20/18 10:13 Dose: Not Given Paroxetine HCl (Paxil) 20 mg PO DAILY [facility] Last Admin: 08/20/18 09:39 Dose: 20 mg Thiamine HCl (Vitamin B1 Tab) 100 mg PO DAILY [facility] Last Admin: 08/20/18 09:39 Dose: 100 mg Trazodone HCl (Desyrel) 200 mg PO HS [facility] Last Admin: 08/20/18 21:01 Dose: 200 mg - Labs Labs: 08/20/18 08:07 08/20/18 08:07 PT 12.8 SECONDS (9.7-12.2) H 08/19/18 19:48 INR 1.2 08/19/18 19:48 APTT 38 SECONDS (21-34) H 08/19/18 19:48 - Constitutional Appears: Non-toxic, No Acute Distress - Eye Exam Eye Exam: Normal appearance - Respiratory Exam Respiratory Exam: Clear to Ausculation Bilateral. absent: Respiratory Distress - Cardiovascular Exam Cardiovascular Exam: RRR, +S1, +S2 - GI/Abdominal Exam GI & Abdominal Exam: Soft. absent: Distended, Tenderness - Extremities Exam Additional comments: no leg edema - Neurological Exam Neurological Exam: Alert, Awake - Psychiatric Exam Psychiatric exam: Normal Mood. absent: Agitated - Skin Skin Exam: Warm. absent: Cyanosis Assessment and Plan (1) Acute kidney injury Assessment & Plan: Pre-renal etiology, resolving with IVF; hypokalemia and metabolic alkalosis resolved; -decreasing IVF to NS at 100 cc/hr; Status: Acute
[2018-08-21 00:34] VITALS: BP 94/55; PULSE 77; TEMP 97.6; O2SAT 99
[2018-08-21] MEDS: cefTRIAXone IV 1 gm in Dextros 50 ML IVPB SCH (02:54)
[2018-08-21] MEDS: Sodium Chloride 0.9% 1,000 ML IV SCH (06:00)
[2018-08-21] MEDS: Hydrocodone/Acetaminophen 5 mg /300 mg Tab PO PRN (06:46)
--- NOTE | 2018-08-21 07:01 | CP.PCM.PN ---
Subjective - Date & Time of Evaluation Date of Evaluation: 08/21/18 Time of Evaluation: 07:01 - Subjective Subjective: PGY-1 Medicine Progress Note for Dr. Schwarz Objective - Vital Signs/Intake and Output Vital Signs (last 24 hours): Temp Pulse Resp BP Pulse Ox 97.6 F 77 20 94/55 L 99 08/20/18 23:10 08/20/18 23:10 08/20/18 23:10 08/20/18 23:10 08/20/18 23:10 Intake and Output: 08/21/18 08/21/18 06:59 18:59 Intake Total 1440 Balance 1440 - Medications Medications: Current Medications Acetaminophen (Tylenol 325mg Tab) 650 mg PO Q6 PRN PRN Reason: Pain, moderate (4-7) Hydrocodone Bitart/Acetaminophen (Vicodin 5 Mg-300 Mg) 1 tab PO Q4H PRN PRN Reason: Pain, severe (8-10) Stop: 08/26/18 01:19 Last Admin: 08/21/18 06:46 Dose: 1 tab Albuterol (Ventolin Hfa 90 Mcg/Actuation (8 G)) 2 puff INH RQ6 PRN PRN Reason: Wheezing Alprazolam (Xanax) 0.5 mg PO DAILY [facility] Last Admin: 08/20/18 09:39 Dose: 0.5 mg Docusate Sodium (Colace) 100 mg PO BID [facility] Last Admin: 08/20/18 17:37 Dose: Not Given Folic Acid (Folic Acid) 1 mg PO DAILY [facility] Last Admin: 08/20/18 09:38 Dose: 1 mg Heparin Sodium (Porcine) (Heparin) 5,000 units SC Q12H [facility] Last Admin: 08/20/18 20:07 Dose: 5,000 units Ceftriaxone Sodium (Rocephin Iv 1 Gm Duplex) 50 mls @ 100 mls/hr IVPB Q12H [facility]; Protocol Last Admin: 08/21/18 02:54 Dose: 100 mls/hr Sodium Chloride (Sodium Chloride 0.9%) 1,000 mls @ 100 mls/hr IV .Q10H [facility] Last Admin: 08/21/18 06:00 Dose: Not Given Metoclopramide HCl (Reglan) 10 mg IVP Q6H PRN PRN Reason: Nausea/Vomiting Last Admin: 08/21/18 06:45 Dose: 10 mg Multivitamins (Hexavitamin) 1 tab PO DAILY [facility] Last Admin: 08/20/18 09:38 Dose: 1 tab Pantoprazole Sodium (Protonix Ec Tab) 20 mg PO DAILY [facility] Last Admin: 08/20/18 10:13 Dose: Not Given Paroxetine HCl (Paxil) 20 mg PO DAILY [facility] Last Admin: 08/20/18 09:39 Dose: 20 mg Thiamine HCl (Vitamin B1 Tab) 100 mg PO DAILY [facility] Last Admin: 08/20/18 09:39 Dose: 100 mg Trazodone HCl (Desyrel) 200 mg PO HS [facility] Last Admin: 08/20/18 21:01 Dose: 200 mg - Labs Labs: 08/20/18 08:07 08/20/18 08:07 PT 12.8 SECONDS (9.7-12.2) H 08/19/18 19:48 INR 1.2 08/19/18 19:48 APTT 38 SECONDS (21-34) H 08/19/18 19:48
[2018-08-21 07:25] LABS: BASO % 0.8 % (0.0-2.0); EOS # 0.2 K/uL (0.0-0.7); EOS % 3.7 % (0.0-4.0); HEMOGLOBIN 11.7 g/dL (11.0-16.0); LYMPH # 1.5 K/uL (1.0-4.3); LYMPH % 25.1 % (20.0-40.0); MEAN CELL VOLUME 94.4 fL (81.0-99.0); MEAN CORPUSCULAR HEMOGLOBIN 31.7 pg (27.0-31.0); MEAN CORPUSCULAR HGB CONC 33.6 g/dL (33.0-37.0); MEAN PLATELET VOLUME 8.7 fL (7.2-11.7); MONO # 0.7 K/uL (0.0-0.8); MONO % 12.1 % (0.0-10.0); NEUT # 3.5 K/uL (1.8-7.0); NEUT % 58.3 % (50.0-75.0); RBC 3.69 Mil/uL (3.80-5.20); RED CELL DISTRIBUTION WIDTH 13.4 % (11.5-14.5)
[2018-08-21 07:48] LABS: ALB/GLOB RATIO 1.3 (1.0-2.1); ALBUMIN 2.8 g/dL (3.5-5.0); ALT/SGPT 24 U/L (9-52); AST/SGOT 19 U/L (14-36); BLOOD UREA NITROGEN 9 mg/dL (7-17); CALCIUM 8.1 mg/dl (8.6-10.4); GFR NON-AFRICAN AMERICAN > 60
--- NOTE | 2018-08-21 11:02 | CP.PCM.DIS ---
<Fito Henderson - Last Filed: 08/21/18 10:54> Provider - Provider Date of Admission: 08/18/18 22:36 Attending physician: Orestes Celis MD Consults: 08/19/18 07:57 Gastroenterology Consult Routine Comment: Consulting Provider: Jd Bianchi Consulting Physician: Jd Bianchi Reason for Consult: gastritis/pancreatitis, dehydration 08/19/18 08:28 Nephrology Consult Routine Comment: Consulting Provider: Tobi Jimenez Consulting Physician: Tobi Jimenez Reason for Consult: ERIN/azotemia 08/19/18 09:22 Psychiatry Consult Routine Comment: Consulting Provider: Safia Aguayo Consulting Physician: Safia Aguayo Reason for Consult: severe anxiety Time Spent in preparation of Discharge (in minutes): 40 Diagnosis - Discharge Diagnosis (1) Abdominal pain Status: Acute (2) Acute kidney injury Status: Acute (3) Anxiety Status: Acute Hospital Course - Lab Results Lab Results: Micro Results 08/19/18 12:08 Urine,Clean Catch Urine Culture - Final No Growth (<1,000 CFU/ML) Most Recent Lab Values WBC 6.0 K/uL (4.8-10.8) 08/21/18 07:04 RBC 3.69 Mil/uL (3.80-5.20) L 08/21/18 07:04 Hgb 11.7 g/dL (11.0-16.0) 08/21/18 07:04 Hct 34.8 % (34.0-47.0) 08/21/18 07:04 MCV 94.4 fL (81.0-99.0) 08/21/18 07:04 MCH 31.7 pg (27.0-31.0) H 08/21/18 07:04 MCHC 33.6 g/dL (33.0-37.0) 08/21/18 07:04 RDW 13.4 % (11.5-14.5) 08/21/18 07:04 Plt Count 242 K/uL (130-400) 08/21/18 07:04 MPV 8.7 fL (7.2-11.7) 08/21/18 07:04 Neut % (Auto) 58.3 % (50.0-75.0) 08/21/18 07:04 Lymph % (Auto) 25.1 % (20.0-40.0) 08/21/18 07:04 [place] % (Auto) 12.1 % (0.0-10.0) H 08/21/18 07:04 Eos % (Auto) 3.7 % (0.0-4.0) 08/21/18 07:04 Baso % (Auto) 0.8 % (0.0-2.0) 08/21/18 07:04 Neut # (Auto) 3.5 K/uL (1.8-7.0) 08/21/18 07:04 Lymph # (Auto) 1.5 K/uL (1.0-4.3) 08/21/18 07:04 [place] # (Auto) 0.7 K/uL (0.0-0.8) 08/21/18 07:04 Eos # (Auto) 0.2 K/uL (0.0-0.7) 08/21/18 07:04 Baso # (Auto) 0.0 K/uL (0.0-0.2) 08/21/18 07:04 Neutrophils % (Manual) 82 % (50-75) H 08/18/18 20:47 Lymphocytes % (Manual) 12 % (20-40) L 08/18/18 20:47 Monocytes % (Manual) 6 % (0-10) 08/18/18 20:47 Platelet Estimate Normal (NORMAL) 08/18/18 20:47 Large Platelets Present 08/18/18 20:47 Microcytosis (manual) Slight 08/18/18 20:47 PT 12.8 SECONDS (9.7-12.2) H 08/19/18 19:48 INR 1.2 08/19/18 19:48 APTT 38 SECONDS (21-34) H 08/19/18 19:48 pO2 64 mm/Hg (30-55) H 08/19/18 14:58 VBG pH 7.35 (7.32-7.43) 08/19/18 14:58 VBG pCO2 38 mmHg (40-60) L 08/19/18 14:58 VBG HCO3 21.5 mmol/L 08/19/18 14:58 VBG Total CO2 22.2 mmol/L (22-28) 08/19/18 14:58 VBG O2 Sat (Calc) 96.1 % (40-65) H 08/19/18 14:58 VBG Base Excess -4.2 mmol/L (0.0-2.0) L 08/19/18 14:58 VBG Potassium 3.7 mmol/L (3.6-5.2) 08/19/18 14:58 Sodium 132.0 mmol/l (132-148) 08/19/18 14:58 Chloride 103.0 mmol/L (98-107) 08/19/18 14:58 Glucose 85 mg/dl (65-105) 08/19/18 14:58 Lactate 2.4 mmol/L (0.7-2.1) H 08/19/18 14:58 Sodium 138 mmol/L (132-148) 08/21/18 07:04 Potassium 4.4 mmol/L (3.6-5.2) 08/21/18 07:04 Chloride 110 mmol/L (98-107) H 08/21/18 07:04 Carbon Dioxide 24 mmol/L (22-30) 08/21/18 07:04 Anion Gap 8 (10-20) L 08/21/18 07:04 BUN 9 mg/dL (7-17) 08/21/18 07:04 Creatinine 0.8 mg/dL (0.7-1.2) 08/21/18 07:04 Est GFR ( Amer) > 60 08/21/18 07:04 Est GFR (Non-Af Amer) > 60 08/21/18 07:04 Random Glucose 88 mg/dL (65-105) 08/21/18 07:04 Calcium 8.1 mg/dl (8.6-10.4) L 08/21/18 07:04 Phosphorus 4.9 mg/dL (2.5-4.5) H 08/19/18 07:50 Magnesium 2.6 mg/dL (1.6-2.3) H 08/19/18 07:50 Total Bilirubin 0.2 mg/dL (0.2-1.3) 08/21/18 07:04 AST 19 U/L (14-36) 08/21/18 07:04 ALT 24 U/L (9-52) 08/21/18 07:04 Alkaline Phosphatase 46 U/L (38-126) 08/21/18 07:04 Total Protein 4.9 g/dL (6.3-8.3) L 08/21/18 07:04 Albumin 2.8 g/dL (3.5-5.0) L 08/21/18 07:04 Globulin 2.1 gm/dL (2.2-3.9) L 08/21/18 07:04 Albumin/Globulin Ratio 1.3 (1.0-2.1) 08/21/18 07:04 Amylase 95 U/L (30-110) 08/20/18 08:07 Lipase 799 U/L (23-300) H 08/20/18 08:07 Venous Blood Potassium 3.7 mmol/L (3.6-5.2) 08/19/18 14:58 Urine Color Yellow (YELLOW) 08/19/18 12:08 Urine Clarity Hazy (Clear) 08/19/18 12:08 Urine pH 5.0 (5.0-8.0) 08/19/18 12:08 Ur Specific [place] 1.012 (1.003-1.030) 08/19/18 12:08 Urine Protein Negative mg/dL (NEGATIVE) 08/19/18 12:08 Urine Glucose (UA) Normal mg/dL (Normal) 08/19/18 12:08 Urine Ketones Negative mg/dL (NEGATIVE) 08/19/18 12:08 Urine Blood 1+ (NEGATIVE) H 08/19/18 12:08 Urine Nitrate Negative (NEGATIVE) 08/19/18 12:08 Urine Bilirubin Negative (NEGATIVE) 08/19/18 12:08 Urine Urobilinogen Normal mg/dL (0.2-1.0) 08/19/18 12:08 Ur Leukocyte Esterase Trace [place]/uL (Negative) 08/19/18 12:08 Urine WBC (Auto) 9 /hpf (0-5) H 08/19/18 12:08 Urine RBC (Auto) 8 /hpf (0-3) H 08/19/18 12:08 Urine WBC Clumps (Auto) Occ /hpf (NONE) H 08/18/18 20:47 Ur Squamous Epith Cells 3 /hpf (0-5) 08/19/18 12:08 Ur Transition Epith Cell 2 /hpf (0-3) 08/18/18 20:47 Urine Bacteria Mod (<OCC) H 08/19/18 12:08 Hyaline Casts 11-20 /lpf (0-2) H 08/18/18 20:47 Ur Random Creatinine 57.0 mg/dL 08/19/18 22:36 U Random Total Protein 197 mg/g creat (21-161) H 08/19/18 22:36 Ur Random Sodium 12 mmol/L 08/19/18 22:36 Urine Creatinine 60 mg/dL (20-275) 08/19/18 22:36 Urine Microalbumin 1.2 mg/dL 08/19/18 22:36 Microalb/Creat Ratio 20 (<30) 08/19/18 22:36 Urine HCG, Qual Negative (NEGATIVE) 08/18/18 20:47 Urine Opiates Screen Positive (NEGATIVE) H 08/19/18 12:08 Urine Methadone Screen Negative (NEGATIVE) 08/19/18 12:08 Ur Barbiturates Screen Negative (NEGATIVE) 08/19/18 12:08 Ur Phencyclidine Scrn Negative (NEGATIVE) 08/19/18 12:08 Ur Amphetamines Screen Negative (NEGATIVE) 08/19/18 12:08 U Benzodiazepines Scrn Positive (NEGATIVE) H 08/19/18 12:08 U Oth Cocaine Metabols Negative (NEGATIVE) 08/19/18 12:08 U Cannabinoids Screen Positive (NEGATIVE) H 08/19/18 12:08 - Hospital Course Hospital Course: HPI: 33 year old female with PMHx of depression, anxiety and asthma presents with 1 week of vomiting, diarrhea and abominal pain. Patient states this happens when she becomes severely depressed and anxious, but has never lasted this long. Patient reports many episodes of vomiting per day, too many to count, non bloody non bilious. She has not been able to tolerate liquids or solids. She reports 2-3 episodes of diarrhea per day, but resolved 4 days ago. She also reports epigastric abdominal pain, it is severe and pulsating/cramping. Pain radiates to RUQ. Pain worsens with gagging/vomiting. Associated symptoms include chills, bodyaches and headache. Denies fever, dizziness, chest pain, cough, shortness of breath. The following is a summary of hospital course. For full detail, please refer to EMR: Abdominal pain/Nausea/Vomiting lipase: 1476, hx of elevated lipase w/o dx of pancreatitis; downtrending---->799 Tolerated liquid diet, advanced to regular diet for lunch IVF, NS@150 Pain meds prn, tylenol, Vicodin, dilaudid-d/c-ed no longer indicated. Antiemetics prn, reglan Patient now having BMs, loose stools Multivitamins Electrolyte repletion as needed GI, Dr. Bianchi consulted Imaging: CT A/P(08/18): No acute abnormality. 2 non-obstructing renal calculi. No evidence of acute pancreatitis, no peripancreatic fluid collection/mass ERIN, improved -BUN/Cr normalized: 9/0.8 (08/21) -baseline, 26/1.1 -I/Os monitored -Renal US negative for acute findings -Nephro, Dr. Jimenez consulted UTI, recurrent -UA: 2+protein, 2+LE, 55WBC, 11 squamous -Urine culture demonstrates no growth -Started on Rocephin 1g iv Q12h Depression/Anxiety -Continue home paxil 20mg po qd -continue home xanax 0.5mg po qd -continue home trazodone 200mg po qd -UDS + for opiates, cannabinoids, benzos -Psych, Dr. Aguayo consulted -Patient suggested to be admitted to psych unit -patient refuses transfer to psych unit at this time -Continue home psych medications -Nicotine patch as needed -support and psychotherapy -continue medical management as per primary Asthma -Continue home ventolin q6h prn Prophylaxis, Diet, Disposition -VTE: heparin q12, SCD -GI: Pepcid 20mg po qd Disposition Patient declined further hospital course treatment and workup and expressed wishes to leave against medical advice. The decision was made with informed refusal. The patient was told that admission to the hospital is necessary. Explanations of the reasons why were discussed. The risks of leaving were explained to the patient and include, but are not limited to, worsening of known or currently unknown conditions, permanent disability, and from undiagnosed or untreated conditions. The patient has the capacity to make this informed decision and understood my explanation of the current medical problems and risks associated with leaving. The patient voluntarily accepts these risks and signed an AMA form documenting our conversation. The patient was given the opportunity to ask questions and reconsider. The patient was encouraged to return to the ED at any time for further care. - Date & Time of H&P Date of H&P: 08/21/18 Time of H&P: 10:54 Discharge Exam - Head Exam Head Exam: ATRAUMATIC, NORMAL INSPECTION, NORMOCEPHALIC - Eye Exam Eye Exam: EOMI, Normal appearance Pupil Exam: NORMAL ACCOMODATION - ENT Exam ENT Exam: Mucous Membranes Moist, Normal Exam - Neck Exam Neck exam: Full Rom, Normal Inspection - Respiratory Exam Respiratory Exam: Clear to PA & Lateral, NORMAL BREATHING PATTERN, UNREMARKABLE. absent: Accessory Muscle Use, Respiratory Distress - Cardiovascular Exam Cardiovascular Exam: REGULAR RHYTHM, +S1, +S2 - GI/Abdominal Exam GI & Abdominal Exam: Normal Bowel Sounds, Soft, Tenderness, Unremarkable. absent: Distended, Firm, Guarding, Rebound, Rigid - Extremities Exam Extremities exam: full ROM, normal capillary refill, normal inspection, pedal pulses present - Neurological Exam Neurological exam: Alert, Normal Gait, Oriented x3 - Psychiatric Exam Psychiatric exam: Anxious - Skin Skin Exam: Dry, Intact, Normal Color, Warm Additional comments: reticular discoloration to abdomen/pelvis/low back Discharge Plan - Discharge Medications Prescriptions: Folic Acid 1 mg PO DAILY #30 tab Metoclopramide HCl [Reglan] 10 mg PO Q6H PRN 14 Days tablet PRN Reason: Nausea/Vomiting Multivitamins [Hexavitamin] 1 tab PO DAILY #30 tab Thiamine [Vitamin B1 Tab] 100 mg PO DAILY #30 tab - Follow Up Plan Condition: FAIR Disposition: AGAINST MEDICAL ADVICE <KarishmaYo H - Last Filed: 08/21/18 12:39> Provider - Provider Date of Admission: 08/18/18 22:36 Attending physician: Orestes Celis MD Consults: 08/19/18 07:57 Gastroenterology Consult Routine Comment: Consulting Provider: Jd Bianchi Consulting Physician: Jd Bianchi Reason for Consult: gastritis/pancreatitis, dehydration 08/19/18 08:28 Nephrology Consult Routine Comment: Consulting Provider: Tobi Jimenez Consulting Physician: Tobi Jimenez Reason for Consult: ERIN/azotemia 08/19/18 09:22 Psychiatry Consult Routine Comment: Consulting Provider: Safia Aguayo Consulting Physician: Safia Aguayo Reason for Consult: severe anxiety Hospital Course - Lab Results Lab Results: Micro Results 08/19/18 12:08 Urine,Clean Catch Urine Culture - Final No Growth (<1,000 CFU/ML) Most Recent Lab Values WBC 6.0 K/uL (4.8-10.8) 08/21/18 07:04 RBC 3.69 Mil/uL (3.80-5.20) L 08/21/18 07:04 Hgb 11.7 g/dL (11.0-16.0) 08/21/18 07:04 Hct 34.8 % (34.0-47.0) 08/21/18 07:04 MCV 94.4 fL (81.0-99.0) 08/21/18 07:04 MCH 31.7 pg (27.0-31.0) H 08/21/18 07:04 MCHC 33.6 g/dL (33.0-37.0) 08/21/18 07:04 RDW 13.4 % (11.5-14.5) 08/21/18 07:04 Plt Count 242 K/uL (130-400) 08/21/18 07:04 MPV 8.7 fL (7.2-11.7) 08/21/18 07:04 Neut % (Auto) 58.3 % (50.0-75.0) 08/21/18 07:04 Lymph % (Auto) 25.1 % (20.0-40.0) 08/21/18 07:04 [place] % (Auto) 12.1 % (0.0-10.0) H 08/21/18 07:04 Eos % (Auto) 3.7 % (0.0-4.0) 08/21/18 07:04 Baso % (Auto) 0.8 % (0.0-2.0) 08/21/18 07:04 Neut # (Auto) 3.5 K/uL (1.8-7.0) 08/21/18 07:04 Lymph # (Auto) 1.5 K/uL (1.0-4.3) 08/21/18 07:04 [place] # (Auto) 0.7 K/uL (0.0-0.8) 08/21/18 07:04 Eos # (Auto) 0.2 K/uL (0.0-0.7) 08/21/18 07:04 Baso # (Auto) 0.0 K/uL (0.0-0.2) 08/21/18 07:04 Neutrophils % (Manual) 82 % (50-75) H 08/18/18 20:47 Lymphocytes % (Manual) 12 % (20-40) L 08/18/18 20:47 Monocytes % (Manual) 6 % (0-10) 08/18/18 20:47 Platelet Estimate Normal (NORMAL) 08/18/18 20:47 Large Platelets Present 08/18/18 20:47 Microcytosis (manual) Slight 08/18/18 20:47 PT 12.8 SECONDS (9.7-12.2) H 08/19/18 19:48 INR 1.2 08/19/18 19:48 APTT 38 SECONDS (21-34) H 08/19/18 19:48 pO2 64 mm/Hg (30-55) H 08/19/18 14:58 VBG pH 7.35 (7.32-7.43) 08/19/18 14:58 VBG pCO2 38 mmHg (40-60) L 08/19/18 14:58 VBG HCO3 21.5 mmol/L 08/19/18 14:58 VBG Total CO2 22.2 mmol/L (22-28) 08/19/18 14:58 VBG O2 Sat (Calc) 96.1 % (40-65) H 08/19/18 14:58 VBG Base Excess -4.2 mmol/L (0.0-2.0) L 08/19/18 14:58 VBG Potassium 3.7 mmol/L (3.6-5.2) 08/19/18 14:58 Sodium 132.0 mmol/l (132-148) 08/19/18 14:58 Chloride 103.0 mmol/L (98-107) 08/19/18 14:58 Glucose 85 mg/dl (65-105) 08/19/18 14:58 Lactate 2.4 mmol/L (0.7-2.1) H 08/19/18 14:58 Sodium 138 mmol/L (132-148) 08/21/18 07:04 Potassium 4.4 mmol/L (3.6-5.2) 08/21/18 07:04 Chloride 110 mmol/L (98-107) H 08/21/18 07:04 Carbon Dioxide 24 mmol/L (22-30) 08/21/18 07:04 Anion Gap 8 (10-20) L 08/21/18 07:04 BUN 9 mg/dL (7-17) 08/21/18 07:04 Creatinine 0.8 mg/dL (0.7-1.2) 08/21/18 07:04 Est GFR ( Amer) > 60 08/21/18 07:04 Est GFR (Non-Af Amer) > 60 08/21/18 07:04 Random Glucose 88 mg/dL (65-105) 08/21/18 07:04 Calcium 8.1 mg/dl (8.6-10.4) L 08/21/18 07:04 Phosphorus 4.9 mg/dL (2.5-4.5) H 08/19/18 07:50 Magnesium 2.6 mg/dL (1.6-2.3) H 08/19/18 07:50 Total Bilirubin 0.2 mg/dL (0.2-1.3) 08/21/18 07:04 AST 19 U/L (14-36) 08/21/18 07:04 ALT 24 U/L (9-52) 08/21/18 07:04 Alkaline Phosphatase 46 U/L (38-126) 08/21/18 07:04 Total Protein 4.9 g/dL (6.3-8.3) L 08/21/18 07:04 Albumin 2.8 g/dL (3.5-5.0) L 08/21/18 07:04 Globulin 2.1 gm/dL (2.2-3.9) L 08/21/18 07:04 Albumin/Globulin Ratio 1.3 (1.0-2.1) 08/21/18 07:04 Amylase 95 U/L (30-110) 08/20/18 08:07 Lipase 799 U/L (23-300) H 08/20/18 08:07 Venous Blood Potassium 3.7 mmol/L (3.6-5.2) 08/19/18 14:58 Urine Color Yellow (YELLOW) 08/19/18 12:08 Urine Clarity Hazy (Clear) 08/19/18 12:08 Urine pH 5.0 (5.0-8.0) 08/19/18 12:08 Ur Specific [place] 1.012 (1.003-1.030) 08/19/18 12:08 Urine Protein Negative mg/dL (NEGATIVE) 08/19/18 12:08 Urine Glucose (UA) Normal mg/dL (Normal) 08/19/18 12:08 Urine Ketones Negative mg/dL (NEGATIVE) 08/19/18 12:08 Urine Blood 1+ (NEGATIVE) H 08/19/18 12:08 Urine Nitrate Negative (NEGATIVE) 08/19/18 12:08 Urine Bilirubin Negative (NEGATIVE) 08/19/18 12:08 Urine Urobilinogen Normal mg/dL (0.2-1.0) 08/19/18 12:08 Ur Leukocyte Esterase Trace [place]/uL (Negative) 08/19/18 12:08 Urine WBC (Auto) 9 /hpf (0-5) H 08/19/18 12:08 Urine RBC (Auto) 8 /hpf (0-3) H 08/19/18 12:08 Urine WBC Clumps (Auto) Occ /hpf (NONE) H 08/18/18 20:47 Ur Squamous Epith Cells 3 /hpf (0-5) 08/19/18 12:08 Ur Transition Epith Cell 2 /hpf (0-3) 08/18/18 20:47 Urine Bacteria Mod (<OCC) H 08/19/18 12:08 Hyaline Casts 11-20 /lpf (0-2) H 08/18/18 20:47 Ur Random Creatinine 57.0 mg/dL 08/19/18 22:36 U Random Total Protein 197 mg/g creat (21-161) H 08/19/18 22:36 Ur Random Sodium 12 mmol/L 08/19/18 22:36 Urine Creatinine 60 mg/dL (20-275) 08/19/18 22:36 Urine Microalbumin 1.2 mg/dL 08/19/18 22:36 Microalb/Creat Ratio 20 (<30) 08/19/18 22:36 Urine HCG, Qual Negative (NEGATIVE) 08/18/18 20:47 Urine Opiates Screen Positive (NEGATIVE) H 08/19/18 12:08 Urine Methadone Screen Negative (NEGATIVE) 08/19/18 12:08 Ur Barbiturates Screen Negative (NEGATIVE) 08/19/18 12:08 Ur Phencyclidine Scrn Negative (NEGATIVE) 08/19/18 12:08 Ur Amphetamines Screen Negative (NEGATIVE) 08/19/18 12:08 U Benzodiazepines Scrn Positive (NEGATIVE) H 08/19/18 12:08 U Oth Cocaine Metabols Negative (NEGATIVE) 08/19/18 12:08 U Cannabinoids Screen Positive (NEGATIVE) H 08/19/18 12:08 Attending/Attestation - Attestation I have personally seen and examined this patient.: Yes I have fully participated in the care of the patient.: Yes I have reviewed all pertinent clinical information, including history, physical exam and plan: Yes Notes (Text): Medical attending: Patient left AMA before I could see and talk to her this morning. We did see and examine her yesterday. Her lab work is much improved since comming and she was now urinating as well as having BM. She has been seen walking around by me in the hallway yesterday. I feel sorry for her as she does have history of psychiatry however per the notes she declined to go to the psychiatry unit. At least her BUN and creatine are back to baseline now. Yo Schwarz
--- NOTE | 2018-08-23 20:13 | CARD ---
APPROVED REPORT Date of service: 08/19/2018 EKG Measurement Heart [id number] <Conclusion> Normal sinus rhythm Prolonged QT Abnormal ECG
== END 2018-08-21 08:50 | disposition left against medical advice (07) | DRG 282 ==
LOC: C.ER 19:48 → C.9E 22:36 → C.6T 23:35 → UNDODISIN 08-21 08:50
PROVIDERS: ADMIT Internal Medicine; ATTEND Internal Medicine
DX: K85.90 Acute pancreatitis without necrosis or infection, unspecified (principal); N17.9 Acute kidney failure, unspecified; E87.4 Mixed disorder of acid-base balance; F41.9 Anxiety disorder, unspecified; F17.200 Nicotine dependence, unspecified, uncomplicated; N18.9 Chronic kidney disease, unspecified; J45.909 Unspecified asthma, uncomplicated; E87.6 Hypokalemia; N39.0 Urinary tract infection, site not specified; F31.9 Bipolar disorder, unspecified; E86.0 Dehydration; E87.1 Hypo-osmolality and hyponatremia; F12.20 Cannabis dependence, uncomplicated

== ENCOUNTER 2018-09-09 20:40 | Emergency (ER) | payer OTHER ==
[2018-09-09 20:41] VITALS: BMI 28.2
[2018-09-09] MEDS ORDERED: Sodium Chloride 0.9% 1,000 ML IV ONE (21:22)
--- NOTE | 2018-09-09 21:26 | C.PDOC ---
History Of Present Illness Patient is a 33yo F with a PMH asthma, anxiety, depression comes in today for intractable vomiting since Friday. Over the last 5 days, she's had about 7 episodes of NBNB a day. She signed out AMA after being hospitalized from 08/18-09/16 9 for the same issue. She came in today due to increased generalized weakness and worsening nausea. She hasn't been able to keep any solids or liquids down for the last two days as she vomits within 30 minutes. The generalized pain is most pronounced in the epigastric region, without radiation. She has been noncompliant with her Ventolin for her asthma and also complains of wheezing without shortness of breath. Denies chest pain, headache, leg pain, numbness, tingling. A heating pad makes it better, however, she's also on the second day of her period. She has not had a BM in at least 3 days and has only urinated low-volume dark urine during this time. <Tuyet Devries - Last Filed: 09/09/18 21:23> Patient seen and examined. Agree with history as provided. <Tawanna Salmeron - Last Filed: 09/10/18 00:48> History Per: Patient History/Exam Limitations: no limitations Onset/Duration Of Symptoms: Days Current Symptoms Are (Timing): Worse Severity: Moderate Quality Of Discomfort: Other (throbbing) Associated Symptoms: Chills, Nausea, Vomiting. denies: Fever, Diarrhea, Constipation, Urinary Symptoms Exacerbating Factors: Food Alleviating Factors: Rest, Other (heating pad) Last Bowel Movement: Days Ago Additional History Per: Family Last Menstral Period: started yesterday <Tuyet Devries - Last Filed: 09/09/18 21:23> <Tawanna Salmeron - Last Filed: 09/10/18 00:48> Chief Complaint (Nursing): Abdominal Pain Past Medical History Reviewed: Historical Data, Nursing Documentation, Vital Signs Vital Signs: Last Vital Signs Temp 98.7 F 09/09/18 20:47 Pulse 96 H 09/09/18 20:47 Resp 18 09/09/18 20:47 BP 166/121 H 09/09/18 20:47 Pulse Ox 97 09/09/18 20:47 - Medical History PMH: Anxiety, Asthma, Bipolar Disorder, Depression, Kidney Stones, Chronic Kidney Disease (SEE COMMENT) - [facility] Procedures CYSTOSCOPY NEC (01/19/14) RETROGRADE PYELOGRAM (01/19/14) TU REMOV URETER OBSTRUCT (02/08/14) URETERAL CATHETERIZATION (02/08/14) Family History: States: Unknown Family Hx - Social History Hx Tobacco Use: Yes (heavy smoker) Hx Alcohol Use: No Hx Substance Use: Yes (marijuana) - Immunization History Hx Tetanus Toxoid Vaccination: No Hx Influenza Vaccination: No Hx Pneumococcal Vaccination: No <Tuyet Devries - Last Filed: 09/09/18 21:23> Vital Signs: Last Vital Signs Temp 99.0 F 09/09/18 23:45 Pulse 70 09/09/18 23:45 Resp 20 09/09/18 23:45 BP 109/67 09/09/18 23:45 Pulse Ox 95 09/09/18 23:45 - [facility] Procedures CYSTOSCOPY NEC (01/19/14) RETROGRADE PYELOGRAM (01/19/14) TU REMOV URETER OBSTRUCT (02/08/14) URETERAL CATHETERIZATION (02/08/14) <Tawanna Salmeron - Last Filed: 09/10/18 00:48> Review Of Systems Constitutional: Positive for: Chills, Weakness, Malaise. Negative for: Fever Cardiovascular: Negative for: Chest Pain, Palpitations, Edema Respiratory: Positive for: Wheezing. Negative for: Cough, Shortness of Breath Gastrointestinal: Positive for: Nausea, Vomiting, Abdominal Pain. Negative for: Diarrhea, Constipation Genitourinary: Positive for: Frequency (decreased frequency). Negative for: Dysuria Neurological: Positive for: Weakness. Negative for: Numbness, Incoordination, Confusion, Headache Psych: Positive for: Anxiety, Depression. Negative for: Suicidal ideation <Tuyet Devries - Last Filed: 09/09/18 21:23> Physical Exam - Physical Exam Appears: Well, No Acute Distress Skin: Warm, Pale, Mottled (over entire abdomen, down proximal thigh bilaterally. erythema down arms, back, with blanching) Head: Atraumatic, Normacephalic Eye(s): bilateral: Normal Inspection (glasses), PERRL, EOMI Oral Mucosa: Dry Lips: Pale Cardiovascular: Rhythm Regular, No Murmur Respiratory: No Accessory Muscle Use, No Rales, No Rhonchi, No Stridor, Wheezing (diffuse wheezes) Gastrointestinal/Abdominal: Bowel Sounds (hypoactive bowel sounds), Soft, Tenderness (diffuse TTP, radiating to epigastric), No Mass, No Distention, No Guarding, No Rebound Back: No CVA Tenderness, No Vertebral Tenderness, No Paraspinal Tenderness Pelvic: Vaginal Bleeding (using menstrual pad), No Cervical Motion Tenderness Extremity: No Tenderness, No Pedal Edema, No Calf Tenderness, Capillary Refill (~4 sec, delayed) Extremity: Bilateral: Atraumatic Pulses: Left Radial: Normal, Right Radial: Normal, Left Dorsalis Pedis: Normal, Right Dorsalis Pedis: Normal DTR: Bicep (R): 3+, Bicep (L): 3+, Knee (R): 3+, Knee (L): 3+, Ankle (R): 3+, Ankle (L): 3+ Neurological/Psych: Oriented x3, Normal Speech, Normal Cognition, Normal Cranial Nerves <Tuyet Devries - Last Filed: 09/09/18 21:23> ED Course And Treatment O2 Sat by Pulse Oximetry: 97 <Tuyet Devries Y - Last Filed: 09/09/18 21:23> - Laboratory Results Result Diagrams: 09/09/18 21:23 09/09/18 21:23 Lab Results: Total Bilirubin 0.6 mg/dL (0.2-1.3) 09/09/18 21:23 AST 30 U/L (14-36) 09/09/18 21:23 ALT 16 U/L (9-52) 09/09/18 21:23 Alkaline Phosphatase 66 U/L (38-126) 09/09/18 21:23 Total Protein 8.0 g/dL (6.3-8.3) 09/09/18 21:23 Albumin 4.9 g/dL (3.5-5.0) 09/09/18 21:23 Globulin 3.0 gm/dL (2.2-3.9) 09/09/18 21:23 Albumin/Globulin Ratio 1.6 (1.0-2.1) 09/09/18 21:23 Lipase 220 U/L (23-300) 09/09/18 21:23 Urine Color Yellow (YELLOW) 09/09/18 21:23 Urine Clarity Slight-cloudy (Clear) 09/09/18 21:23 Urine pH 5.0 (5.0-8.0) 09/09/18 21:23 Ur Specific [place] 1.029 (1.003-1.030) 09/09/18 21:23 Urine Protein 2+ mg/dL (NEGATIVE) H 09/09/18 21:23 Urine Glucose (UA) Normal mg/dL (Normal) 09/09/18 21:23 Urine Ketones Negative mg/dL (NEGATIVE) 09/09/18 21:23 Urine Blood 3+ (NEGATIVE) H 09/09/18 21:23 Urine Nitrate Negative (NEGATIVE) 09/09/18 21:23 Urine Bilirubin Negative (NEGATIVE) 09/09/18 21:23 Urine Urobilinogen 2.0 mg/dL (0.2-1.0) H 09/09/18 21:23 Ur Leukocyte Esterase Neg [place]/uL (Negative) 09/09/18 21:23 Urine RBC (Auto) 1082 /hpf (0-3) H 09/09/18 21:23 Ur Squamous Epith Cells 7 /hpf (0-5) H 09/09/18 21:23 Urine Bacteria Few (<OCC) H 09/09/18 21:23 Urine HCG, Qual Negative (NEGATIVE) 09/09/18 21:39 Urine HCG, Qual Negative (NEGATIVE) 09/09/18 21:39 <Tawanna Salmeron - Last Filed: 09/10/18 00:48> Medical Decision Making Medical Decision Making: - labs - upreg - UA - UDS - CT A/P without contrast - IVP Reglan 10mg - IVP Morphine 1mg - Duoneb x1 - 1L NS bolus 2200 d/w Dr. Salmeron who will continue care and management. <Tuyet Devries - Last Filed: 09/09/18 21:23> Medical Decision Makin:46 Patient again c/o abdominal pain with vomiting. CT done but not yet resulted. Pantoprazole ordered. Case discussed ith Dr Rubio. Patient to be admitted for Cyclic vomiting syndrome. <Tawanna Salmeron - Last Filed: 09/10/18 00:48> Disposition - Disposition Disposition Time: 22:04 <Tuyet Devries - Last Filed: 09/09/18 21:23> - Disposition Disposition Time: 00:47 - POA Present On Arrival: None <Tawanna Salmeron - Last Filed: 09/10/18 00:48> - Disposition Disposition: HOSPITALIZED Condition: FAIR - Clinical Impression Clinical Impression: Intractable vomiting with nausea, Abdominal pain
[2018-09-09 21:27] VITALS: RESP 20
[2018-09-09 21:27] LABS: BASO # 0.1 K/uL (0.0-0.2); BASO % 0.8 % (0.0-2.0); EOS % 0.4 % (0.0-4.0); HEMOGLOBIN 14.9 g/dL (11.0-16.0); LYMPH # 1.2 K/uL (1.0-4.3); LYMPH % 12.6 % (20.0-40.0); MEAN CELL VOLUME 94.8 fL (81.0-99.0); MEAN CORPUSCULAR HEMOGLOBIN 32.4 pg (27.0-31.0); MEAN CORPUSCULAR HGB CONC 34.2 g/dL (33.0-37.0); MEAN PLATELET VOLUME 7.8 fL (7.2-11.7); MONO # 0.7 K/uL (0.0-0.8); MONO % 7.1 % (0.0-10.0); NEUT # 7.5 K/uL (1.8-7.0); NEUT % 79.1 % (50.0-75.0); RBC 4.58 Mil/uL (3.80-5.20); RED CELL DISTRIBUTION WIDTH 13.8 % (11.5-14.5); WHITE BLOOD COUNT 9.5 K/uL (4.8-10.8)
[2018-09-09] MEDS ORDERED: Albuterol-Ipratrop 3 mg / 0.5 (3 ml) UD ONE (21:27)
[2018-09-09 21:38] LABS: SQUAMOUS EPITHIAL 7 /hpf (0-5); URINE BACTERIA FEW (<OCC); URINE BILIRUBIN NEGATIVE (NEGATIVE); URINE BLOOD 3+ (NEGATIVE); URINE GLUCOSE (UA) NORMAL (Normal); URINE LEUKOCYTE ESTERASE NEG Leu/uL (Negative); URINE PROTEIN 2+ mg/dL (NEGATIVE)
[2018-09-09 21:43] LABS: URINE CLARITY SLIGHT-CLOUDY (Clear); URINE COLOR YELLOW (YELLOW)
[2018-09-09] MEDS ORDERED: Sodium Chloride 0.9% 1,000 ML ONE (21:49)
[2018-09-09 21:51] LABS: ALB/GLOB RATIO 1.6 (1.0-2.1); ALBUMIN 4.9 g/dL (3.5-5.0); ALT/SGPT 16 U/L (9-52); AST/SGOT 30 U/L (14-36); BLOOD UREA NITROGEN 19 mg/dL (7-17); CALCIUM 9.9 mg/dl (8.6-10.4); GFR NON-AFRICAN AMERICAN > 60; LIPASE 220 U/L (23-300)
[2018-09-09] MEDS ORDERED: Albuterol-Ipratrop 3 mg / 0.5 (3 ml) UD INH STA (21:55)
[2018-09-09 22:09] LABS: BARBITURATES, UR NEGATIVE (NEGATIVE); OPIATES, UR NEGATIVE (NEGATIVE); PHENCYCLIDINE, UR NEGATIVE (NEGATIVE)
[2018-09-09 22:13] LABS: BENZODIAZEPINES, UR POSITIVE (NEGATIVE)
[2018-09-10 00:15] VITALS: BP 109/67; PULSE 70; TEMP 99; O2SAT 95
--- NOTE | 2018-09-10 09:02 | CT ---
Date of service: 09/10/2018 PROCEDURE: CT Abdomen and Pelvis without intravenous contrast HISTORY: intractable vomiting COMPARISON: 08/18/2018 TECHNIQUE: Multiple contiguous axial images were performed through the abdomen and pelvis without the use of intravenous contrast. Subsequently, sagittal coronal reformatted images were obtained. Contrast dose: Radiation dose: Total exam DLP = 220.7 mGy-cm. This CT exam was performed using one or more of the following dose reduction techniques: Automated exposure control, adjustment of the mA and/or kV according to patient size, and/or use of iterative reconstruction technique. FINDINGS: LOWER THORAX: Mild atelectasis at the left lung base. LIVER: Unremarkable. No gross lesion or ductal dilatation. GALLBLADDER AND BILE DUCTS: Unremarkable. PANCREAS: Mild diffuse thickening of the pancreatic body. Given the lack of intravenous contrast, evaluation is somewhat limited. This may represent a mild acute pancreatitis. Clinical correlation. SPLEEN: Unremarkable. ADRENALS: Unremarkable. No mass. KIDNEYS AND URETERS: Punctate nonobstructive calculus seen within the right kidney measuring up to 4.5 millimeters in the upper pole and 2.2 millimeters in the midpole. No gross hydronephrosis. VASCULATURE: Unremarkable. No aortic aneurysm. No aortic atherosclerotic calcification or mural plaque present. BOWEL: Underdistention and or mild thickening of the distal sigmoid colon. APPENDIX: Unremarkable. Normal appendix. PERITONEUM: Unremarkable. No free fluid. No free air. LYMPH NODES: Unremarkable. No enlarged lymph nodes. Few shotty para-aortic and inguinal lymph nodes. Few shotty mesenteric lymph nodes. Small fat containing midline umbilical hernia. BLADDER: Unremarkable. REPRODUCTIVE: Unremarkable. BONES: Few scattered bone islands within the the sacrum and right hemipelvis. OTHER FINDINGS: None. IMPRESSION: 1. Mild diffuse thickening of the pancreatic body. Given the lack of intravenous contrast, evaluation is somewhat limited. This may represent a mild acute pancreatitis. Clinical correlation. 2. Nonobstructive right renal calculi. 3. Mild underdistention and or minimal thickening of the distal sigmoid colon. Clinical correlation. A preliminary report was generated at 1:51 a.m. on 09/10/[address] Tony Phillips from [employer]
== END 2018-09-10 00:49 | disposition left against medical advice (07) ==
LOC: C.ER 20:40
DX: R11.2 Nausea with vomiting, unspecified (principal); R10.13 Epigastric pain
CPT/HCPCS: 74176; 80053; 80324; 80345; 80346; 80349; 80353; 80358; 80361; 81001; 83690; 83992; 84703; 85025; 94640; 96361; 96374; 96375; 99285; J2270; J2765; J7030

== ENCOUNTER 2018-09-13 23:00 | Emergency (ER) | payer MEDICAID ==
[2018-09-13 23:00] VITALS: BMI 28.2
[2018-09-13 23:13] VITALS: RESP 16
[2018-09-13] MEDS ORDERED: Sodium Chloride 0.9% 1,000 ML IV ONE (23:37)
--- NOTE | 2018-09-13 23:38 | C.PDOC ---
History Of Present Illness 33 year old female presents with abdominal cramping and vomiting ongoing for the last 10 days. Patient was seen on 09/09/18, had CT scan and blood work done but signed out AMA before completion of treatment. Patient has HX of depression and anxiety, follows up with [facility], also has Hx of abuse with marijuana but states she stopped for the last week and is still vomiting. She reports she is using weight, was 125lb last week and is 112lb this week. Currently she reports feeling weak, dehydrated, and notes she has had decreased urinary output. Denies cough, runny nose, diarrhea, fever, or chills. Time Seen by Provider: 09/13/18 23:27 Chief Complaint (Nursing): Abdominal Pain History Per: Patient History/Exam Limitations: no limitations Onset/Duration Of Symptoms: Days Current Symptoms Are (Timing): Still Present Location Of Pain/Discomfort: Diffuse Quality Of Discomfort: Unable To Describe Associated Symptoms: Nausea, Vomiting. denies: Fever, Chills, Diarrhea Alleviating Factors: None Recent travel outside of the [place]: No Past Medical History Reviewed: Historical Data, Nursing Documentation, Vital Signs Vital Signs: Last Vital Signs Temp 97.9 F 09/13/18 23:11 Pulse 120 H 09/13/18 23:11 Resp 16 09/13/18 23:11 BP 107/75 09/13/18 23:11 Pulse Ox 94 L 09/13/18 23:11 - Medical History PMH: Anxiety, Asthma, Bipolar Disorder, Depression, Kidney Stones, Chronic Kidney Disease (SEE COMMENT) - [facility] Procedures CYSTOSCOPY NEC (01/19/14) RETROGRADE PYELOGRAM (01/19/14) TU REMOV URETER OBSTRUCT (02/08/14) URETERAL CATHETERIZATION (02/08/14) Family History: States: Unknown Family Hx - Social History Hx Tobacco Use: Yes (heavy smoker) Hx Alcohol Use: No Hx Substance Use: Yes (marijuana) - Immunization History Hx Tetanus Toxoid Vaccination: No Hx Influenza Vaccination: No Hx Pneumococcal Vaccination: No Review Of Systems Constitutional: Negative for: Fever, Chills ENT: Negative for: Nose Discharge Cardiovascular: Negative for: Chest Pain, Palpitations Respiratory: Negative for: Cough, Shortness of Breath Gastrointestinal: Positive for: Nausea, Vomiting, Abdominal Pain Neurological: Negative for: Weakness, Numbness Physical Exam - Physical Exam Appears: Other (Cachetic with bitemporal muscle wasting) Skin: Normal Color, Warm Head: Atraumatic, Normacephalic Eye(s): bilateral: Normal Inspection Oral Mucosa: Dry Neck: Normal, Supple Chest: Symmetrical, No Tenderness Cardiovascular: Rhythm Regular Respiratory: Normal Breath Sounds, No Rales, No Rhonchi, No Wheezing Gastrointestinal/Abdominal: Soft, Tenderness (Diffusely), No Guarding, No Rebound Neurological/Psych: Oriented x3, Normal Speech ED Course And Treatment O2 Sat by Pulse Oximetry: 94 Medical Decision Making Medical Decision Making: Differential diagnosis includes cannabis cyclical vomiting syndrome, anxiety, gastritis, and other chronic illness. Labs and IV fluids ordered, patient to be endorsed to Dr. Rios pending lab results, reeval and dispo. Disposition - Disposition Disposition Time: 23:38 Condition: GUARDED Forms: [facility] (Hungarian) - Clinical Impression Clinical Impression: Nausea & vomiting, Cyclical vomiting syndrome - Scribe Statement The provider has reviewed the documentation as recorded by the Scribe Inder Valladares All medical record entries made by the Scribe were at my direction and personally dictated by me. I have reviewed the chart and agree that the record accurately reflects my personal performance of the history, physical exam, medical decision making, and the department course for this patient. I have also personally directed, reviewed, and agree with the discharge instructions and disposition. Physician Patient Turnover Patient Signed Over To: Farhana Rios Handoff Comments: patient just seen with cyclical vomiting syndrome. Pending labs, IV fluid, further eval and final dispo.
[2018-09-13] MEDS ORDERED: Sodium Chloride 0.9% 1,000 ML ONE (23:54)
[2018-09-14] LABS: BASO # 0.1 K/uL (0.0-0.2); BASO % 0.8 % (0.0-2.0); EOS % 0.2 % (0.0-4.0); LYMPH # 1.2 K/uL (1.0-4.3); LYMPH % 8.6 % (20.0-40.0); MEAN CELL VOLUME 92.3 fL (81.0-99.0); MEAN CORPUSCULAR HEMOGLOBIN 32.5 pg (27.0-31.0); MEAN CORPUSCULAR HGB CONC 35.2 g/dL (33.0-37.0); NEUT # 11.4 K/uL (1.8-7.0); NEUT % 83.4 % (50.0-75.0); PLATELET COUNT 390 K/uL (130-400); RBC 5.22 Mil/uL (3.80-5.20); RED CELL DISTRIBUTION WIDTH 13.8 % (11.5-14.5); WHITE BLOOD COUNT 13.7 K/uL (4.8-10.8)
[2018-09-14 00:02] LABS: HCG,QUALITATIVE URINE NEGATIVE (NEGATIVE)
[2018-09-14 00:07] LABS: SQUAMOUS EPITHIAL 10 /hpf (0-5); URINE BACTERIA RARE (<OCC); URINE BILIRUBIN 1+ (NEGATIVE); URINE BLOOD 1+ (NEGATIVE); URINE CLARITY Hazy (Clear); URINE COLOR Amber (YELLOW); URINE GLUCOSE (UA) NORMAL (Normal); URINE HYALINE CAST >20 /lpf (0-2); URINE LEUKOCYTE ESTERASE TRACE Leu/uL (Negative); URINE PROTEIN 1+ mg/dL (NEGATIVE)
[2018-09-14 00:19] LABS: ALB/GLOB RATIO 1.2 (1.0-2.1); ALBUMIN 5.4 g/dL (3.5-5.0)
[2018-09-14 00:25] LABS: BARBITURATES, UR NEGATIVE (NEGATIVE); PHENCYCLIDINE, UR NEGATIVE (NEGATIVE)
[2018-09-14 00:28] LABS: OPIATES, UR POSITIVE (NEGATIVE)
[2018-09-14 00:52] LABS: BENZODIAZEPINES, UR POSITIVE (NEGATIVE)
[2018-09-14] MEDS ORDERED: Sodium Chloride 0.9% 1,000 ML IV ONE (01:03)
[2018-09-14 01:09] LABS: LYMPHOCYTE 7 % (20-40); MONOCYTE 6 % (0-10); NEUTROPHIL 87 % (50-75); PLATELET ESTIMATE NORMAL (NORMAL); TOTAL CELLS COUNTED 100
[2018-09-14 03:08] VITALS: TEMP 98.1; O2SAT 98
[2018-09-14 05:17] VITALS: BP 111/61; PULSE 96
== END 2018-09-14 05:25 | disposition home or self-care (01) ==
LOC: C.ER 23:00
DX: G43.A0 Cyclical vomiting, in migraine, not intractable (principal)
CPT/HCPCS: 80053; 80324; 80345; 80346; 80349; 80353; 80358; 80361; 81001; 81025; 83690; 83992; 84703; 85025; 96361; 96374; 99285; J2765; J7030

== ENCOUNTER 2018-10-08 22:35 | Emergency (ER) | payer OTHER | END 2018-10-09 03:34 | disposition short-term general hospital (02) | LOC: C.3T 10-09 03:05 → C.ER 22:35 ==

== ENCOUNTER 2018-10-13 20:19 | Inpatient (IN) | payer OTHER ==
[2018-10-13 20:19] VITALS: BMI 28.2
--- NOTE | 2018-10-13 22:01 | C.PDOC ---
History Of Present Illness 33 year old female requesting readmission for "bad kidneys", also new onset of "bubble" on her lower back for the past 2 days. Patient was admitted on 10/09/18 for ERIN but left AMA due to familiar obligations. Patient states she is now able tos mechelle. She reports persistent nausea and vomiting from previous admission. Patient states she showered with "very hot water" for back pain, now with blister to her lower back and diffuse skin irritations. She reports no improvement with aloe vera and A&D ointment. REQUESTING READMISSION FOR "BAD KIDNEYS", ALSO NEW ONSET "BUBBLE" ON LOWER BACK X 2 DAYS. ADMITTED 10/09 FOR ERIN BUT LEFT AMA DUE TO FAMILIAR OBLIGATIONS. PS NOW ABLE TO STAY. PERSIST NV FROM PREV ADMISSION. PS SHOWERED WITH "VERY HOT WATER" FOR BACK PAIN, NOW W BLISTER LOWER BACK AND DIFFUSE SKIN IRRITATION. NO IMPROVE W ALOE VERA AND A&D OINTMENT. PMHx of depression, anxiety and asthma, PMD: Dr. Barboza Proxy: Arnold cyr [phone] EXAM CRYING BUT DISTRACTABLE NONTOXIC SKIN +SECOND DEG BURN W BLISTER, CLEAR FLUID LOWER BACK; +DIFFUSE 1 DEG BURN DIFFUSE BACK W SKIN FLAKING. NO CELLULITIS. NO EDEMA PSYCH LABILE EMOTIONS, CRYING THAN COMPOSED IN QUICK SUCCESSION. ANXIOUS; NO ACUTE INTOX, PSYCHOSIS; NO SI/SA REMAINDER NEG MDM PS TOOK ROUTINE DOSE XANAX THIS MORNING. REQUESTING GI MEDS, PAIN MED FOR BACK. Time Seen by Provider: 10/13/18 21:41 Chief Complaint (Nursing): Abdominal Pain History Per: Patient History/Exam Limitations: no limitations Onset/Duration Of Symptoms: Days Current Symptoms Are (Timing): Still Present Recent travel outside of the [place]: No Past Medical History Reviewed: Historical Data, Nursing Documentation, Vital Signs Vital Signs: Last Vital Signs Temp 98.4 F 10/13/18 20:45 Pulse 108 H 10/13/18 20:45 Resp 20 10/13/18 20:45 BP 113/93 H 10/13/18 20:45 Pulse Ox 97 10/13/18 20:45 Primary Care Provider: Elizabeth Barboza - Medical History PMH: Anxiety, Asthma, Bipolar Disorder, Depression, Kidney Stones, Chronic Kidney Disease (SEE COMMENT) - [facility] Procedures CYSTOSCOPY NEC (01/19/14) RETROGRADE PYELOGRAM (01/19/14) TU REMOV URETER OBSTRUCT (02/08/14) URETERAL CATHETERIZATION (02/08/14) Family History: States: Unknown Family Hx - Social History Hx Tobacco Use: Yes (heavy smoker) Hx Alcohol Use: No Hx Substance Use: Yes (SMOKES MARIJUANA DAILY) - Immunization History Hx Tetanus Toxoid Vaccination: No Hx Influenza Vaccination: No Hx Pneumococcal Vaccination: No Review Of Systems Except As Marked, All Systems Reviewed And Found Negative. Constitutional: Negative for: Fever, Chills Gastrointestinal: Positive for: Nausea, Vomiting Skin: Positive for: Other (Blister) Physical Exam - Physical Exam Appears: Non-toxic, Other (Crying but distractable) Skin: Other (Second degree burn with blister, clear fluid to lower back; diffuse first degree burn diffuse to back with skin flaking. No cellulitis, no edema.) Head: Atraumatic, Normacephalic Eye(s): bilateral: Normal Inspection Oral Mucosa: Moist Neck: Normal, Supple Chest: Symmetrical, No Tenderness Cardiovascular: Rhythm Regular Respiratory: Normal Breath Sounds, No Rales, No Rhonchi, No Wheezing Gastrointestinal/Abdominal: Soft, No Tenderness Back: No CVA Tenderness Neurological/Psych: Oriented x3, Normal Speech, Other (Labile emotions, crying then composed in quick successionm. Anxious. No acute intoxication or psychosis. No SI/SA.) Gait: Steady ED Course And Treatment - Laboratory Results Result Diagrams: 10/13/18 23:08 10/13/18 23:08 O2 Sat by Pulse Oximetry: 97 (Room air) Pulse Ox Interpretation: Normal Progress - Re-Evaluation Re-evaluation Note: 10/13/18 23:00 PROCEDURE: BLISTER DEROOFING. STERILE TECHNIQUE. INCISION W 11 BLADE. CLEAR FLUID EXPRESSED. BLISTER ROOF TRIMMED. NONADHERENT DRESSING APPLIED. PT TOLERATED WELL 10/13/18 23:37 AMBUL WO DIFF, APPEARS IMPROVED D/W DR OLIVER WILL ADMIT - Data Reviewed Data Reviewed: Lab, EKG, Old records Medical Decision Making Medical Decision Making: PS TOOK ROUTINE DOSE XANAX THIS MORNING. REQUESTING GI MEDS, PAIN MED FOR BACK. Disposition Counseled Patient/Family Regarding: Studies Performed, Diagnosis - Disposition Disposition: HOSPITALIZED Disposition Time: 23:38 Condition: SERIOUS Forms: [employer] (Kazakh) - POA Present On Arrival: None - Clinical Impression Clinical Impression: Acute renal failure, Burn due to contact with hot water in bath, Cyclical vomiting syndrome, Hypokalemia - Scribe Statement The provider has reviewed the documentation as recorded by the Scribissa Valladares All medical record entries made by the Scribe were at my direction and personally dictated by me. I have reviewed the chart and agree that the record accurately reflects my personal performance of the history, physical exam, medical decision making, and the department course for this patient. I have also personally directed, reviewed, and agree with the discharge instructions and disposition.
[2018-10-13] MEDS ORDERED: Bacitracin 500 Units/gm Oint Foilpak UD TOP ONE (22:09)
[2018-10-13 23:20] LABS: BASO # 0.1 K/uL (0.0-0.2); BASO % 0.4 % (0.0-2.0); EOS # 0.3 K/uL (0.0-0.7); EOS % 1.8 % (0.0-4.0); HEMOGLOBIN 16.1 g/dL (11.0-16.0); LYMPH # 1.2 K/uL (1.0-4.3); LYMPH % 8.1 % (20.0-40.0); MEAN CELL VOLUME 92.2 fL (81.0-99.0); MEAN CORPUSCULAR HEMOGLOBIN 32.5 pg (27.0-31.0); MEAN CORPUSCULAR HGB CONC 35.2 g/dL (33.0-37.0); MEAN PLATELET VOLUME 7.9 fL (7.2-11.7); MONO # 1.3 K/uL (0.0-0.8); MONO % 9.1 % (0.0-10.0); NEUT # 11.7 K/uL (1.8-7.0); NEUT % 80.6 % (50.0-75.0); NRBC % 0.1 % (0.0-2.0); RBC 4.97 Mil/uL (3.80-5.20); RED CELL DISTRIBUTION WIDTH 13.7 % (11.5-14.5); WHITE BLOOD COUNT 14.5 K/uL (4.8-10.8)
[2018-10-13 23:22] LABS: PLATELET COUNT 426 K/uL (130-400)
[2018-10-13 23:25] LABS: HCG,QUALITATIVE URINE NEGATIVE (NEGATIVE)
[2018-10-13 23:27] LABS: SQUAMOUS EPITHIAL 1 /hpf (0-5); URINE BILIRUBIN NEGATIVE (NEGATIVE); URINE BLOOD 1+ (NEGATIVE); URINE CLARITY Hazy (Clear); URINE COLOR Amber (YELLOW); URINE GLUCOSE (UA) NORMAL (Normal); URINE HYALINE CAST >20 /lpf (0-2); URINE LEUKOCYTE ESTERASE NEG Leu/uL (Negative); URINE PROTEIN 1+ mg/dL (NEGATIVE)
[2018-10-13 23:33] LABS: ALB/GLOB RATIO 1.4 (1.0-2.1); ALBUMIN 5.1 g/dL (3.5-5.0); ALT/SGPT 16 U/L (9-52); AST/SGOT 22 U/L (14-36); BLOOD UREA NITROGEN 45 mg/dL (7-17); CALCIUM 9.9 mg/dl (8.6-10.4); GFR NON-AFRICAN AMERICAN 25
[2018-10-13] MEDS ORDERED: Potassium Chloride 20 mEq/15 ml LIQ UD PO STA (23:35)
[2018-10-13] MEDS ORDERED: Sodium Chloride 0.9% 1,500 ML IV ONE (23:35)
[2018-10-13 23:41] LABS: BARBITURATES, UR NEGATIVE (NEGATIVE); OPIATES, UR NEGATIVE (NEGATIVE); PHENCYCLIDINE, UR NEGATIVE (NEGATIVE)
[2018-10-13 23:45] LABS: BENZODIAZEPINES, UR POSITIVE (NEGATIVE)
[2018-10-14 00:03] LABS: EOSINOPHIL 2 % (0-4); LYMPHOCYTE 8 % (20-40); MONOCYTE 5 % (0-10); NEUTROPHIL 85 % (50-75); PLATELET ESTIMATE NORMAL (NORMAL); TOTAL CELLS COUNTED 100
[2018-10-14] MEDS ORDERED: Potassium Chloride 20 mEq/15 ml LIQ UD ONE (00:03)
[2018-10-14] MEDS ORDERED: Potassium Chloride 20 mEq 100 ML ONE (00:03)
[2018-10-14] MEDS ORDERED: Sodium Chloride 0.9% 1,000 ML ONE (00:03)
--- NOTE | 2018-10-14 00:34 | CP.PCM.HP ---
<Maxim Altman - Last Filed: 10/14/18 00:34> History of Present Illness - History of Present Illness History of Present Illness: 33F PMHx of depression, anxiety and asthma, presents with 6 day hx of nausea vomiting and heavy menses. Pt says she hasnt been able to take any food or home meds by mouth. Pt says this happened once before for which she was hospitalized her at [facility] about 2 months ago. Pt is uncooperative with history, is only focused on getting morphine for her stomach pain, and sometimes inappropriately laughs and smiles during encounter. reports pain started while she was playing "[employer] a jones" and then had "diarrhea from her vagina", then felt extreme abdominal pain radiating up into her throat. Left AMA two days ago from [facility] with same symptoms after not getting morphine ROS: unable to obtain due to pt uncooperative status PMHx: depression, anxiety and asthma PSHx: Kidney stent Meds: Trasodone Allergies: Iodine, Shellfish- anaphylaxis; zofran, [place], peach, apple, kiwi- itching Family Hx: mother-HTN, asthma, depressoin SocHx: smoker- smokes 10cig per day for 20 years. Denies alcohol and illicit drugs PMD: Dr. Barboza Proxy: dadMatthew [phone] Present on Admission - Present on Admission Any Indicators Present on Admission: No Review of Systems - Review of Systems All systems: reviewed and no additional remarkable complaints except (as per HPI) Past Patient History - Infectious Disease Hx of Infectious Diseases: None - Tetanus Immunizations Tetanus Immunization: Unknown - Past Medical History & Family History Past Medical History?: Yes - Past Social History Smoking Status: Heavy Smoker > 10 Cigarettes Daily - CARDIAC Hx Cardiac Disorders: No - PULMONARY Hx Asthma: Yes - NEUROLOGICAL Hx Neurological Disorder: No - HEENT Hx HEENT Problems: No - RENAL Hx Chronic Kidney Disease: Yes (SEE COMMENT) Hx Kidney Stones: Yes - ENDOCRINE/METABOLIC Hx Endocrine Disorders: No - HEMATOLOGICAL/ONCOLOGICAL Hx Blood Disorders: No - INTEGUMENTARY Hx Dermatological Problems: No - MUSCULOSKELETAL/RHEUMATOLOGICAL Hx Falls: No - GASTROINTESTINAL Hx Gastrointestinal Disorders: No - GENITOURINARY/GYNECOLOGICAL Hx Genitourinary Disorders: Yes (SEE COMMENT) Other/Comment: kidney stones - PSYCHIATRIC Hx Anxiety: Yes Hx Bipolar Disorder: Yes Hx Depression: Yes Hx Substance Use: Yes (SMOKES MARIJUANA DAILY) - SURGICAL HISTORY Hx Surgeries: Yes (SEE COMMENT) Other/Comment: cysto/stent placement;Lithotripsy - ANESTHESIA Hx Anesthesia: Yes Hx Anesthesia Reactions: No Hx Malignant Hyperthermia: No Meds Allergies/Adverse Reactions: Allergies Allergy/AdvReac Type Severity Reaction Status Date / Time iodine Allergy Severe ANAPHYLAXIS Verified 10/13/18 20:54 ketorolac tromethamine Allergy Severe ANAPHYLAXIS Verified 10/13/18 20:54 [From Toradol] ondansetron HCl Allergy Severe ANAPHYLAXIS Verified 10/13/18 20:54 [From Zofran (as hydrochloride)] shellfish derived Allergy Severe ANAPHYLAXIS Verified 10/13/18 20:54 Physical Exam - Additional Findings Additional findings: - Constitutional Appears: No Acute Distress - Head Exam Head Exam: ATRAUMATIC, NORMOCEPHALIC - Eye Exam Eye Exam: EOMI, Normal appearance, PERRL - ENT Exam ENT Exam: Mucous Membranes Moist - Neck Exam Neck exam: Positive for: Full Rom, Normal Inspection - Respiratory Exam Respiratory Exam: Wheezes (scattered), NORMAL BREATHING PATTERN. absent: Rales, Rhonchi, Respiratory Distress - Cardiovascular Exam Cardiovascular Exam: REGULAR RHYTHM, +S1, +S2 - GI/Abdominal Exam GI & Abdominal Exam: Guarding (LUQ), Normal Bowel Sounds, Soft, Tenderness (Epigastrium, LUQ and LLQ). absent: Distended, Firm, Rigid - Extremities Exam Extremities exam: Positive for: full ROM, normal capillary refill, normal inspection, pedal pulses present. Negative for: calf tenderness, pedal edema, tenderness - Neurological Exam Neurological exam: Alert, CN II-XII Intact, Normal Gait, Oriented x3 - Psychiatric Exam Psychiatric exam: Anxious, Depressed, uncooperative, crying - Skin Skin Exam: Dry, Intact, Normal Color, Warm, Results - Vital Signs Recent Vital Signs: Last Vital Signs Temp 98.5 F 10/14/18 00:26 Pulse 90 10/14/18 00:26 Resp 18 10/14/18 00:26 BP 97/59 L 10/14/18 00:26 Pulse Ox 99 10/14/18 00:26 - Labs Result Diagrams: 10/13/18 23:08 10/13/18 23:08 Labs: Laboratory Results - last 24 hr 10/13/18 10/13/1819 23:08 23:08 23:08 WBC 14.5 H RBC 4.97 Hgb 16.1 H Hct 45.8 MCV 92.2 MCH 32.5 H MCHC 35.2 RDW 13.7 Plt Count 426 H D MPV 7.9 Neut % (Auto) 80.6 H Lymph % (Auto) 8.1 L [place] % (Auto) 9.1 Eos % (Auto) 1.8 Baso % (Auto) 0.4 Neut # (Auto) 11.7 H Lymph # (Auto) 1.2 [place] # (Auto) 1.3 H Eos # (Auto) 0.3 Baso # (Auto) 0.1 Neutrophils % (Manual) 85 H Lymphocytes % (Manual) 8 L Monocytes % (Manual) 5 Eosinophils % (Manual) 2 Platelet Estimate Normal RBC Morphology Normal Sodium 129 L Potassium 2.8 L Chloride 86 L Carbon Dioxide 23 Anion Gap 22 H BUN 45 H Creatinine 2.2 H Est GFR ( Amer) 31 Est GFR (Non-Af Amer) 25 Random Glucose 114 H Calcium 9.9 Total Bilirubin 0.7 AST 22 ALT 16 Alkaline Phosphatase 66 Total Protein 8.9 H Albumin 5.1 H Globulin 3.8 Albumin/Globulin Ratio 1.4 Urine Color Sparkle Urine Clarity Hazy Urine pH 5.0 Ur Specific [place] 1.019 Urine Protein 1+ H Urine Glucose (UA) Normal Urine Ketones Negative Urine Blood 1+ H Urine Nitrate Negative Urine Bilirubin Negative Urine Urobilinogen 2.0 H Ur Leukocyte Esterase Neg Urine WBC (Auto) 4 Urine RBC (Auto) 9 H Ur Squamous Epith Cells 1 Hyaline Casts >20 H Urine HCG, Qual Negative Urine Opiates Screen Urine Methadone Screen Ur Barbiturates Screen Ur Phencyclidine Scrn Ur Amphetamines Screen U Benzodiazepines Scrn U Oth Cocaine Metabols U Cannabinoids Screen Alcohol, Quantitative < 10 10/13/18 23:08 WBC RBC Hgb Hct MCV MCH MCHC RDW Plt Count MPV Neut % (Auto) Lymph % (Auto) [place] % (Auto) Eos % (Auto) Baso % (Auto) Neut # (Auto) Lymph # (Auto) [place] # (Auto) Eos # (Auto) Baso # (Auto) Neutrophils % (Manual) Lymphocytes % (Manual) Monocytes % (Manual) Eosinophils % (Manual) Platelet Estimate RBC Morphology Sodium Potassium Chloride Carbon Dioxide Anion Gap BUN Creatinine Est GFR ( Amer) Est GFR (Non-Af Amer) Random Glucose Calcium Total Bilirubin AST ALT Alkaline Phosphatase Total Protein Albumin Globulin Albumin/Globulin Ratio Urine Color Urine Clarity Urine pH Ur Specific [place] Urine Protein Urine Glucose (UA) Urine Ketones Urine Blood Urine Nitrate Urine Bilirubin Urine Urobilinogen Ur Leukocyte Esterase Urine WBC (Auto) Urine RBC (Auto) Ur Squamous Epith Cells Hyaline Casts Urine HCG, Qual Urine Opiates Screen Negative Urine Methadone Screen Negative Ur Barbiturates Screen Negative Ur Phencyclidine Scrn Negative Ur Amphetamines Screen Negative U Benzodiazepines Scrn Positive U Oth Cocaine Metabols Negative U Cannabinoids Screen Positive H Alcohol, Quantitative Assessment & Plan - Assessment and Plan (Free Text) Assessment: Dehydration w/ electrolyte abnormalities N/V/D Mild Pancreatitis Lipase mild elevation 305 CT abd: Fluid filled stomach or probably mild gastroparesis. Nonobstructing right nephrolithiasis. LRs @250 mls/hr Rocephin 1g q[address] Lassiter consulted f/u recs 1st deg burn back Apply Medihoney BID Depression/Anxiety Benadryl 50 IVP for agitation Trazodone 200mg HS Consider psych eval Asthma Duonebs PRN for SOB PPx Heparin 5000u SC q12 PTX 40 IVP daily CK PGY1 dw Dr Love <Naveed Love - Last Filed: 10/14/18 06:39> Results - Vital Signs Recent Vital Signs: Last Vital Signs Temp 98.4 F 10/14/18 01:04 Pulse 113 H 10/14/18 01:04 Resp 20 10/14/18 01:04 BP 145/93 H 10/14/18 01:04 Pulse Ox 97 10/14/18 01:04 - Labs Result Diagrams: 10/13/18 23:08 10/13/18 23:08 Labs: Laboratory Results - last 24 hr 10/13/18 10/13/18 10/13/18 23:08 23:08 23:08 WBC 14.5 H RBC 4.97 Hgb 16.1 H Hct 45.8 MCV 92.2 MCH 32.5 H MCHC 35.2 RDW 13.7 Plt Count 426 H D MPV 7.9 Neut % (Auto) 80.6 H Lymph % (Auto) 8.1 L [place] % (Auto) 9.1 Eos % (Auto) 1.8 Baso % (Auto) 0.4 Neut # (Auto) 11.7 H Lymph # (Auto) 1.2 [place] # (Auto) 1.3 H Eos # (Auto) 0.3 Baso # (Auto) 0.1 Neutrophils % (Manual) 85 H Lymphocytes % (Manual) 8 L Monocytes % (Manual) 5 Eosinophils % (Manual) 2 Platelet Estimate Normal RBC Morphology Normal Sodium 129 L Potassium 2.8 L Chloride 86 L Carbon Dioxide 23 Anion Gap 22 H BUN 45 H Creatinine 2.2 H Est GFR ( Amer) 31 Est GFR (Non-Af Amer) 25 Random Glucose 114 H Calcium 9.9 Total Bilirubin 0.7 AST 22 ALT 16 Alkaline Phosphatase 66 Total Protein 8.9 H Albumin 5.1 H Globulin 3.8 Albumin/Globulin Ratio 1.4 Urine Color Sparkle Urine Clarity Hazy Urine pH 5.0 Ur Specific [place] 1.019 Urine Protein 1+ H Urine Glucose (UA) Normal Urine Ketones Negative Urine Blood 1+ H Urine Nitrate Negative Urine Bilirubin Negative Urine Urobilinogen 2.0 H Ur Leukocyte Esterase Neg Urine WBC (Auto) 4 Urine RBC (Auto) 9 H Ur Squamous Epith Cells 1 Hyaline Casts >20 H Urine HCG, Qual Negative Urine Opiates Screen Urine Methadone Screen Ur Barbiturates Screen Ur Phencyclidine Scrn Ur Amphetamines Screen U Benzodiazepines Scrn U Oth Cocaine Metabols U Cannabinoids Screen Alcohol, Quantitative < 10 10/13/18 23:08 WBC RBC Hgb Hct MCV MCH MCHC RDW Plt Count MPV Neut % (Auto) Lymph % (Auto) [place] % (Auto) Eos % (Auto) Baso % (Auto) Neut # (Auto) Lymph # (Auto) [place] # (Auto) Eos # (Auto) Baso # (Auto) Neutrophils % (Manual) Lymphocytes % (Manual) Monocytes % (Manual) Eosinophils % (Manual) Platelet Estimate RBC Morphology Sodium Potassium Chloride Carbon Dioxide Anion Gap BUN Creatinine Est GFR ( Amer) Est GFR (Non-Af Amer) Random Glucose Calcium Total Bilirubin AST ALT Alkaline Phosphatase Total Protein Albumin Globulin Albumin/Globulin Ratio Urine Color Urine Clarity Urine pH Ur Specific [place] Urine Protein Urine Glucose (UA) Urine Ketones Urine Blood Urine Nitrate Urine Bilirubin Urine Urobilinogen Ur Leukocyte Esterase Urine WBC (Auto) Urine RBC (Auto) Ur Squamous Epith Cells Hyaline Casts Urine HCG, Qual Urine Opiates Screen Negative Urine Methadone Screen Negative Ur Barbiturates Screen Negative Ur Phencyclidine Scrn Negative Ur Amphetamines Screen Negative U Benzodiazepines Scrn Positive U Oth Cocaine Metabols Negative U Cannabinoids Screen Positive H Alcohol, Quantitative Assessment & Plan - Date & Time Date: 10/14/18 (I have seen and examined the patient. I agree with the findings and plan of care as documented by Dr. Altman. Patient with renal insufficiency. Left AMA previously with the same issue. Continue plan for IV hydration. Consult to nephro. Follow renal function. First degree burn. Patient attributes to taking a very hot shower. Medihoney. History of anxiety. Contiue home meds. Monitor for acute changes.) Time: 01:00 Attending/Attestation - Attestation I have personally seen and examined this patient.: Yes I have fully participated in the care of the patient.: Yes I have reviewed all pertinent clinical information: Yes
[2018-10-14] MEDS ORDERED: Albuterol-Ipratrop 3 mg / 0.5 (3 ml) UD INH PRN ×2 (00:39→21:00)
[2018-10-14 01:14] VITALS: RESP 20
[2018-10-14] MEDS: DiphenhydrAMINE 50 mg/ml Inj IVP PRN ×3 (01:22→20:55)
[2018-10-14] MEDS: Lactated Ringer's 1,000 ML IV SCH ×7 (01:23→21:24)
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
[2018-10-14 11:16] LABS: BASO % 0.2 % (0.0-2.0); EOS % 0.3 % (0.0-4.0); LYMPH # 0.6 K/uL (1.0-4.3); LYMPH % 4.4 % (20.0-40.0); MEAN CELL VOLUME 92.6 fL (81.0-99.0); MEAN CORPUSCULAR HEMOGLOBIN 32.2 pg (27.0-31.0); MEAN CORPUSCULAR HGB CONC 34.8 g/dL (33.0-37.0); MEAN PLATELET VOLUME 7.6 fL (7.2-11.7); MONO # 0.6 K/uL (0.0-0.8); MONO % 4.3 % (0.0-10.0); NEUT # 11.8 K/uL (1.8-7.0); NEUT % 90.8 % (50.0-75.0); RBC 3.81 Mil/uL (3.80-5.20); RED CELL DISTRIBUTION WIDTH 13.9 % (11.5-14.5)
[2018-10-14 11:34] LABS: ALB/GLOB RATIO 1.4 (1.0-2.1); ALBUMIN 3.4 g/dL (3.5-5.0); ALT/SGPT 19 U/L (9-52); AST/SGOT 18 U/L (14-36); BLOOD UREA NITROGEN 25 mg/dL (7-17); CALCIUM 8.2 mg/dl (8.6-10.4); GFR NON-AFRICAN AMERICAN > 60
[2018-10-14 11:36] LABS: HEMOGLOBIN 12.3 g/dL (11.0-16.0)
[2018-10-14 11:37] LABS: PLATELET COUNT 320 K/uL (130-400)
[2018-10-14 12:20] LABS: LYMPHOCYTE 2 % (20-40); MONOCYTE 4 % (0-10); NEUTROPHIL 94 % (50-75); PLATELET ESTIMATE NORMAL (NORMAL); TOTAL CELLS COUNTED 100
[2018-10-14] MEDS: Morphine 4 MG/ML VIAL IV PRN ×3 (13:38→19:38)
[2018-10-14] MEDS ORDERED: Potassium Chloride 20 mEq ER Tab PO ONE ×3 (15:30→19:00)
[2018-10-14] MEDS ORDERED: Lactated Ringer's 1,000 ML IV SCH (18:09)
[2018-10-15] MEDS: DiphenhydrAMINE 50 mg/ml Inj IVP PRN (01:10)
[2018-10-15] MEDS: Lactated Ringer's 1,000 ML IV SCH ×6 (01:12→21:40)
[2018-10-15] MEDS: Morphine 4 MG/ML VIAL IV PRN ×4 (01:17→20:49)
[2018-10-15 07:56] LABS: BASO # 0.1 K/uL (0.0-0.2); BASO % 0.6 % (0.0-2.0); EOS # 0.3 K/uL (0.0-0.7); EOS % 2.9 % (0.0-4.0); HEMOGLOBIN 10.9 g/dL (11.0-16.0); LYMPH # 1.3 K/uL (1.0-4.3); LYMPH % 14.2 % (20.0-40.0); MEAN CELL VOLUME 93.2 fL (81.0-99.0); MEAN CORPUSCULAR HEMOGLOBIN 32.8 pg (27.0-31.0); MEAN CORPUSCULAR HGB CONC 35.2 g/dL (33.0-37.0); MEAN PLATELET VOLUME 7.6 fL (7.2-11.7); MONO # 0.8 K/uL (0.0-0.8); MONO % 8.5 % (0.0-10.0); NEUT % 73.8 % (50.0-75.0); RBC 3.31 Mil/uL (3.80-5.20); RED CELL DISTRIBUTION WIDTH 13.4 % (11.5-14.5); WHITE BLOOD COUNT 9.4 K/uL (4.8-10.8)
[2018-10-15 08:09] LABS: ALB/GLOB RATIO 1.5 (1.0-2.1); ALBUMIN 2.8 g/dL (3.5-5.0); ALT/SGPT 23 U/L (9-52); AST/SGOT 20 U/L (14-36); BLOOD UREA NITROGEN 10 mg/dL (7-17); CALCIUM 8.1 mg/dl (8.6-10.4); GFR NON-AFRICAN AMERICAN > 60
[2018-10-15] MEDS: Magnesium Sulfate 1 gm in D5W 1 GM/100 ML BAG IVPB SCH ×2 (09:30→10:46)
[2018-10-15] MEDS ORDERED: Potassium Chloride 20 mEq ER Tab PO ONE (09:45)
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
[2018-10-15] MEDS ORDERED: Silver Sulfadiazine 1% Cream (20 gm) EXT ONE (12:15)
--- NOTE | 2018-10-15 14:18 | PCM.PYCHPN ---
Psychiatric Progress Note - Psychiatric Progress Note Patient seen today, length of contact: 15 min Patient Chief Complaint: I am feeling better Problems Identified/Issues Discussed: Patient was seen and evaluated, chart reviewed discussed the staff. Patient reports improvement in mood and reports improvement in the sleep and appetite. Her nausea and vomiting is getting better as well. She denies any auditory hallucinations or any paranoia. She denies any suicidal ideation or homicidal ideation. Supportive therapy was given Medication Change: Yes Medical Record Reviewed: Yes Mental Status Examination - Cognitive Function Orientation: Person, Place, Situation, Time Memory: Intact Attention: WNL Concentration: WNL Association: WNL Fund of Knowledge: WNL - Mood Mood: Anxious - Affect Affect: Constricted, Depressed - Speech Speech: Soft - Formal Thought Process Formal Thought Process: No Impairment - Suicidal Ideation Suicidal Ideation: No - Homicidal Ideation Homicidal Ideation: No Goal/Treatment Plan - Goal/Treatment Plan Need for Continued Stay: Remain at risks for inpatient hospitalization Progress Toward Problem(s) and Goals/Treatment Plan: Major depressive disorder recurrent moderate Supportive therapy Psychoeducation Continue patient's home meds Paxil Trazodone for insomnia Discontinue one-to-one Patient psychiatrically stable and cleared
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
[2018-10-15] MEDS: Silver Sulfadiazine 1% Cream (20 gm) TOP SCH (17:36)
[2018-10-16] MEDS: Lactated Ringer's 1,000 ML IV SCH ×3 (03:00→10:27)
[2018-10-16] MEDS: Morphine 4 MG/ML VIAL IV PRN (04:17)
[2018-10-16] MEDS ORDERED: DiphenhydrAMINE 50 mg/ml Inj IVP STA (06:18)
[2018-10-16 07:34] LABS: BASO # 0.1 K/uL (0.0-0.2); BASO % 0.5 % (0.0-2.0); EOS # 0.1 K/uL (0.0-0.7); EOS % 1.1 % (0.0-4.0); HEMOGLOBIN 11.8 g/dL (11.0-16.0); LYMPH % 9.2 % (20.0-40.0); MEAN CELL VOLUME 93.1 fL (81.0-99.0); MEAN CORPUSCULAR HEMOGLOBIN 33.3 pg (27.0-31.0); MEAN CORPUSCULAR HGB CONC 35.8 g/dL (33.0-37.0); MONO # 0.9 K/uL (0.0-0.8); MONO % 8.6 % (0.0-10.0); NEUT # 8.9 K/uL (1.8-7.0); NEUT % 80.6 % (50.0-75.0); PLATELET COUNT 338 K/uL (130-400); RBC 3.55 Mil/uL (3.80-5.20); RED CELL DISTRIBUTION WIDTH 13.5 % (11.5-14.5)
[2018-10-16 07:35] VITALS: BP 158/87; PULSE 65; TEMP 98.4; O2SAT 98
[2018-10-16 07:54] LABS: ALB/GLOB RATIO 1.4 (1.0-2.1); ALT/SGPT 25 U/L (9-52); AST/SGOT 22 U/L (14-36); BLOOD UREA NITROGEN 5 mg/dL (7-17); CALCIUM 8.3 mg/dl (8.6-10.4); GFR NON-AFRICAN AMERICAN > 60
[2018-10-16] MEDS ORDERED: Potassium Chloride 20 mEq ER Tab PO ONE ×2 (09:01→10:15)
[2018-10-16] MEDS: Silver Sulfadiazine 1% Cream (20 gm) TOP SCH (10:22)
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
[2018-10-16 11:48] LABS: LYMPHOCYTE 6 % (20-40); MONOCYTE 1 % (0-10); NEUTROPHIL 93 % (50-75); PLATELET ESTIMATE NORMAL (NORMAL); TOTAL CELLS COUNTED 100
== END 2018-10-16 13:45 | disposition home or self-care (01) | DRG 469 ==
LOC: C.ER 20:19 → C.5S 23:39 → EEVIPCON 23:39
PROVIDERS: ADMIT Family Medicine; ATTEND Family Medicine
DX: N17.9 Acute kidney failure, unspecified (principal); K85.90 Acute pancreatitis without necrosis or infection, unspecified; E87.3 Alkalosis; K31.84 Gastroparesis; F33.1 Major depressive disorder, recurrent, moderate; E87.1 Hypo-osmolality and hyponatremia; N18.9 Chronic kidney disease, unspecified; N20.0 Calculus of kidney; T21.04XA Burn of unspecified degree of lower back, initial encounter; X11.0XXA Contact with hot water in bath or tub, initial encounter; G47.00 Insomnia, unspecified; G43.A0 Cyclical vomiting, in migraine, not intractable; F43.10 Post-traumatic stress disorder, unspecified; E86.0 Dehydration; E86.1 Hypovolemia; E87.6 Hypokalemia; F31.9 Bipolar disorder, unspecified; J45.909 Unspecified asthma, uncomplicated; Z87.442 Personal history of urinary calculi; F17.210 Nicotine dependence, cigarettes, uncomplicated; Z79.899 Other long term (current) drug therapy; Z81.8 Family history of other mental and behavioral disorders; Z82.49 Family history of ischemic heart disease and other diseases of the circulatory system; Z82.5 Family history of asthma and other chronic lower respiratory diseases